=== PATIENT | female | born 1960 | race Caucasian/White ===

== ENCOUNTER 2019-05-25 14:30 | Emergency (ER) | payer OTHER, SELFPAY ==
[2019-05-25 14:43] VITALS: BP 130/74; PULSE 67; RESP 20; TEMP 36.7; O2SAT 100
--- NOTE | 2019-05-25 15:59 | ED.URI ---
HPI - URI/Sore Throat General Chief Complaint: Upper Respiratory Infection Stated Complaint: jaw swelling Time Seen by Provider: 05/25/19 16:00 Source: patient and RN notes reviewed Mode of arrival: ambulatory Limitations: no limitations History of Present Illness HPI Narrative: 59-year-old female presents with concern for left jaw swelling, ear pain that is to 3 days ago. Reports the swelling will get worse when she eats. Reports that area is also tender. She also reports 4-day history of nasal congestion, cough, sore throat. MD elicited complaint: other (Jaw swelling) Related Data Home Medications Medication Instructions Recorded Confirmed albuterol sulfate 90 mcg/actuation 2 puff INHALATION Q4H PRN gm 03/05/19 05/25/19 aerosol inhaler escitalopram oxalate 10 mg tablet 10 mg PO DAILY 03/05/19 05/25/19 fluticasone propionate 50 2 spray NASAL DAILY 03/05/19 05/25/19 mcg/actuation nasal spray,suspension lorazepam 0.5 mg tablet 0.5 mg PO TID PRN 03/05/19 05/25/19 Allergies Allergy/AdvReac Type Severity Reaction Status Date / Time codeine Allergy Mild Unknown Verified 05/25/19 14:52 Review of Systems Review of Systems: Narrative: CONSTITUTIONAL: Denies malaise, chills, sweats, or fever. EYES: Denies visual changes, redness, or discharge. ENT: Reports rhinorrhea, congestion, otalgia and sore throat. Reports left jaw swelling near her ear. CARDIOVASCULAR: Denies chest pain, palpitations, or edema. RESPIRATORY: Reports occasional cough. Denies dyspnea. GASTROINTESTINAL: Denies abdominal pain, nausea, vomiting, diarrhea SKIN: Denies rash or itching. MUSCULOSKELETAL: Denies myalgia. NEUROLOGIC: Denies headache. All systems reviewed & are unremarkable except as noted in HPI and below PMFSH Social History Social History Smoking status: Never smoker Alcohol intake: never Comments At time of signature, agree with nursing past medical, surgical, social and family history. There is no relevant family history pertinent to the presenting complaint Exam Narrative: Exam Narrative: GENERAL: Well-appearing, well-nourished, and in no acute distress. HEAD: Normocephalic, atraumatic. EYES: PERRLA, conjunctivae clear, and EOMI. ENT: Nares clear, turbinates erythematous, clear discharge. Mucous membranes moist. Right TM pearly redding with dull light reflex, left TM with very mild erythema, no purulence or bulging; no tragal tenderness. Oropharynx not erythematous without lesions. Tonsils not enlarged and without exudate, no drooling, no hoarseness, no trismus. Tenderness, induration noted to his left parotid gland; small pustule noted on the mucosal membrane outside the parotid duct NECK: Supple. No lymphadenopathy CHEST: Clear to auscultation, breath sounds equal. No wheezing, rhonchi, rales, or stridor. No respiratory distress, speaks in full sentences. HEART: Regular rate and rhythm. No murmur heard. Normal peripheral pulses. SKIN: Warm, dry, no rash. NEURO: Alert and oriented x3. PSYCH: Normal mood and affect Course Course Emergency Course: Patient is aware of diagnosis, understands and agrees to treatment plan. Anticipatory guidance given. Patient agrees to follow-up as directed and is aware of reasons to seek care at the emergency department. Portions of this record may have been created with voice recognition software Vital Signs Vital signs: Vital Signs Temperature 98.1 F 05/25/19 14:43 Pulse Rate 67 05/25/19 14:43 Respiratory Rate 05/25/19 14:43 Blood Pressure 130/74 05/25/19 14:43 Pulse Oximetry 100 05/25/19 14:43 Temperature 98.1 F 05/25/19 14:43 Pulse Rate 67 05/25/19 14:43 Respiratory Rate 05/25/19 14:43 Blood Pressure 130/74 05/25/19 14:43 Pulse Oximetry 100 05/25/19 14:43 Reviewed. Patient has current diagnosis of hypertension MDM - URI/Sore Throat MDM Narrative Medical decision making narrative: Differenti
== END 2019-05-25 16:20 | disposition home or self-care (01) ==
PROVIDERS: Emergency Provider Nurse Practitioner; PCP Family Medicine
DX: K11.20 Sialoadenitis, unspecified (principal); J44.9 Chronic obstructive pulmonary disease, unspecified; F41.9 Anxiety disorder, unspecified
CPT/HCPCS: 99213; G0463

== ENCOUNTER 2019-06-10 10:31 | Outpatient (CLI) | payer OTHER, SELFPAY ==
[2019-06-10 11:04] LABS: Basophils Percent Auto 0.4 % (0.2-1.2); Eosinophils Absolute Auto 0.2 K/mm3 (0-0.3); Eosinophils Percent Auto 2.2 % (0-4.4); Hematocrit 38.9 % (37.0-47.0); Hemoglobin 12.4 g/dL (12.0-15.0); Immature Granulocyte Absolute 0.05 K/mm3 (0.00-0.031); Immature Granulocyte Percent A 0.5 % (0-0.5); Lymphocytes Absolute Auto 2.18 K/mm3 (0.9-3.2); Lymphocytes Percent Auto 23.6 % (18.3-44.2); Mean Corpuscular HGB Conc 31.9 g/dl (32-36); Mean Corpuscular Hemoglobin 30.7 pg (26-34); Mean Corpuscular Volume 96.3 fl (80-100); Mean Platelet Volume 10.6 fl (7.4-10.4); Monocytes Absolute Auto 0.6 K/mm3 (0.1-0.6); Monocytes Percent Auto 6.5 % (2.6-8.5); Neutrophils Absolute Auto 6.2 K/mm3 (1.3-6.7); Neutrophils Percent Auto 66.8 % (45.5-73.1); Platelet Count Result 323 k/mm3 (150-375); Red Blood Count 4.04 M/mm3 (4.2-5.4); Red Cell Distribution Width 12.9 % (11.5-14.5); White Blood Count 9.3 K/mm3 (4.5-10.0)
[2019-06-10 11:17] LABS: Blood Urea Nitrogen 13 mg/dL (7-17); Carbon Dioxide 27 mmol/L (22-30); Chloride 102 mmol/L (98-107); Estimated Glomerular Filt Rate > 60; Glucose 95 mg/dL (65-105); Potassium 3.9 mmol/L (3.4-5.0); Sodium 140 mmol/L (137-145)
[2019-06-12 10:31] LABS: CMV IgG Antibody <0.60 U/mL (<0.60)
[2019-06-12 20:30] LABS: EBV Nuclear Ab Interpretation Past; EBV Virus Capsid Ag IgM Ab <36.00 U/mL (<36.00)
[2019-06-13 10:18] LABS: CMV IgM Antibody <30.00 AU/mL (<30.00)
== END 2019-06-10 10:32 | disposition home or self-care (01) ==
LOC: ANHLAB 10:31
PROVIDERS: PCP Family Medicine; Visit Provider Nurse Practitioner Family
DX: J32.9 Chronic sinusitis, unspecified (principal); R53.83 Other fatigue
CPT/HCPCS: 36415; 80048; 85025; 86644; 86645; 86664; 86665

== ENCOUNTER 2019-11-04 00:27 | Outpatient (CLI) | payer OTHER, SELFPAY ==
[2019-11-04 18:42] LABS: SARS-CoV-2 RNA PCR Negative
== END 2019-11-04 00:28 | disposition home or self-care (01) ==
LOC: ANHCOVIDDT 00:27
PROVIDERS: PCP Family Medicine; Visit Provider Internal Medicine Gastroenterology
DX: Z01.812 Encounter for preprocedural laboratory examination (principal); Z11.59 Encounter for screening for other viral diseases
CPT/HCPCS: 87635; C9803; U0003

== ENCOUNTER 2019-11-06 02:07 | Day surgery (SDC) | payer OTHER, SELFPAY ==
[2019-11-01 15:59] VITALS: BMI 35.9
[2019-11-06 07:53] VITALS: BP 133/81; PULSE 80; RESP 18; TEMP 36.4; O2SAT 98
[2019-11-06] MEDS: LACTATED RINGERS 1,000 ML 150 ML IV CONT (08:15)
--- NOTE | 2019-11-06 08:27 | P.PNAN_ITS ---
Anes - Initial Pre Proc Eval Procedure: Operation Date: 11/06/19 09:15 Proposed Procedures p Screening Colonoscopy - Lonnie Rg MD Date/Time: 11/06/19 08:27 Surgeon: Lonnie Rg MD Pre Op Diagnosis: Neoplasm Screening Patient Data Age: 59 Gender: F Height: 5 ft 7 in Weight: 102 kg Last Vital Signs Temp 97.5 F L 11/06/19 07:53 Pulse 80 11/06/19 07:53 Resp 18 11/06/19 07:53 BP 133/81 11/06/19 07:53 Pulse Ox 98 11/06/19 07:53 Allergies Allergy/AdvReac Type Severity Reaction Status Date / Time codeine AdvReac Mild Vomiting Verified 11/06/19 07:57 Home Medications Medication Instructions Recorded Confirmed Type albuterol sulfate 90 mcg/actuation 2 puff INHALATION Q4H PRN gm 03/05/19 11/06/19 History aerosol inhaler fluticasone propionate 50 2 spray NASAL DAILY PRN 03/05/19 11/06/19 History mcg/actuation nasal spray,suspension budesonide-formoterol HFA 160 2 puff INHALATION Q12H #3 device 09/17/19 11/06/19 Rx mcg-4.5 mcg/actuation aerosol inhaler naltrexone 8 mg-bupropion 90 mg 2 tablet PO BID #120 tablet 10/10/19 11/06/19 Rx tablet,extended release escitalopram oxalate 20 mg PO QAM 11/01/19 11/06/19 History lorazepam [Ativan] 0.5 mg PO TID PRN 11/01/19 11/06/19 History mirabegron [Myrbetriq] 25 mg PO HS 11/01/19 11/06/19 History naproxen 500 mg PO QAM 11/01/19 11/06/19 History omeprazole magnesium [Acid Drugless Doctor 20 mg PO QAM 11/01/19 11/06/19 History (omeprazole)] peg 3350-electrolytes 236 240 ml PO Q10M #4000 ml 11/04/19 Rx gram-22.74 gram-6.74 gram-5.86 gram solution Patient hx anesthesia problems: none Family hx anesthesia problems: none PMFSH Past Medical History Medical History (Updated 11/06/19 @ 08:27 by Diego Merrill MD) Chronic obstructive pulmonary disease, unspecified Gastroesophageal reflux disease Obesity Sleep apnea, unspecified Social History Social History Smoking status: Never smoker Alcohol intake: never Anes - Eval Final PreProcedure Day of Procedure 11/06/19 08:27 Patient weight: obese Heart: regular rate and rhythm Lungs: clear to auscultation Airway: Mallampati scale class II Neurological: alert and oriented Last oral intake: >/= 8 hours ASA classification: III Emergent: no Anesthetic plan: proceed Anesthesia type and monitoring: general GIVS Informed Consent: The patient's anesthetic plan and its attendant risks and benefits were discussed with the patient/family/POA. Questions were solicited and answers provided to the satisfaction of the patient/family/POA.
--- NOTE | 2019-11-06 08:41 | PM.HPGS ---
History of Present Illness History of Present Illness Consent: Risks, benefits, and alternatives have been discussed and questions answered. Patient agrees to proceed with procedure. Chief complaint: Neoplasm Screening Narrative: Pham Schreiber is a 59 year old female with her last colonoscopy 8 years ago, father with colon cancer Review of Systems Constitutional: Constitutional: Denies headache(s) and Denies weakness Eyes: Eyes: Denies blurry vision ENT: Reports Normal hearing present, Denies headache(s) and Denies neck pain Cardiovascular: Cardiovascular: Denies chest pain and Denies dyspnea Respiratory: Respiratory: Denies dyspnea Gastrointestinal: Gastrointestinal: Reports no additional gastrointestinal complaints Genitourinary: Genitourinary: Denies dysuria Musculoskeletal: Musculoskeletal: Denies neck pain Integumentary/Breasts: Skin/Breast: Denies dry skin Neurologic: Reports Normal hearing present, Denies headache(s) and Denies weakness Psychiatric: Psychiatric: Denies anxiety Endocrine: Endocrine: Denies change in body appearance Hematologic/Lymphatic: Hematologic/Lymphatic: Denies easy bleeding Allergic/Immunologic: Allergic/Immunologic: Denies urticaria PMFSH Past Medical History Medical History (Updated 11/06/19 @ 08:41 by Lonnie Rg MD) Chronic obstructive pulmonary disease, unspecified Family history of colon cancer in father Gastroesophageal reflux disease Obesity Sleep apnea, unspecified Social History Social History Smoking status: Never smoker Alcohol intake: never Meds Home Medications and Allergies Home Medications Medication Instructions Recorded Confirmed Type albuterol sulfate 90 mcg/actuation 2 puff INHALATION Q4H PRN gm 03/05/19 11/06/19 History aerosol inhaler fluticasone propionate 50 2 spray NASAL DAILY PRN 03/05/19 11/06/19 History mcg/actuation nasal spray,suspension budesonide-formoterol HFA 160 2 puff INHALATION Q12H #3 device 09/17/19 11/06/19 Rx mcg-4.5 mcg/actuation aerosol inhaler naltrexone 8 mg-bupropion 90 mg 2 tablet PO BID #120 tablet 10/10/19 11/06/19 Rx tablet,extended release escitalopram oxalate 20 mg PO QAM 11/01/19 11/06/19 History lorazepam [Ativan] 0.5 mg PO TID PRN 11/01/19 11/06/19 History mirabegron [Myrbetriq] 25 mg PO HS 11/01/19 11/06/19 History naproxen 500 mg PO QAM 11/01/19 11/06/19 History omeprazole magnesium [Acid White Kid Buffer 20 mg PO QAM 11/01/19 11/06/19 History (omeprazole)] peg 3350-electrolytes 236 240 ml PO Q10M #4000 ml 11/04/19 Rx gram-22.74 gram-6.74 gram-5.86 gram solution Allergies Allergy/AdvReac Type Severity Reaction Status Date / Time codeine AdvReac Mild Vomiting Verified 11/06/19 07:57 Vital Signs Vital Signs - 24 hr 11/06/19 07:53 Temperature 97.5 F L Pulse Rate 80 Respiratory Rate 18 Blood Pressure 133/81 Pulse Oximetry 98 Exam Const: General: comfortable and no acute distress HENMT: General nose exam: Normal nares present Eyes: General: appearance normal, both eyes and all related structures Neck: Neck: no JVD Resp: Auscultation: clear to auscultation bilaterally Cardio: Rate: regular rate Rhythm: regular rhythm GI: Inspection: non-distended GI Palp: Yes Soft to palpation Skin: General skin exam: normal color Neuro: General: gait normal Speech: normal speech Extrem: General: normal to inspection Psych: Mental Status: mental status grossly normal Assessment and Plan Assessment and plan (1) Family history of colon cancer in father: Code(s): Z80.0 - Family history of malignant neoplasm of digestive organs Status: Acute Assessment and Plan: will proceed with colonoscopy (2) Chronic obstructive pulmonary disease, unspecified: Code(s): J44.9 - Chronic obstructive pulmonary disease, unspecified Status: Acute
[2019-11-06 09:08] VITALS: BP 124/70; PULSE 75; RESP 18; O2SAT 96
[2019-11-06 09:16] VITALS: BP 117/71; PULSE 69; RESP 18; O2SAT 96
[2019-11-06 09:25] VITALS: BP 126/75; PULSE 67; RESP 18; O2SAT 98
== END 2019-11-06 09:34 | disposition home or self-care (01) ==
PROVIDERS: PCP Family Medicine; Visit Provider Internal Medicine Gastroenterology
PROC: 0DJD8ZZ Inspection of Lower Intestinal Tract, Via Natural or Artificial Opening Endoscopic (ICD-10-PCS; CPT 45378; principal; 2019-11-06 09:15)
DX: Z12.11 Encounter for screening for malignant neoplasm of colon (principal); K64.8 Other hemorrhoids; J44.9 Chronic obstructive pulmonary disease, unspecified; G47.30 Sleep apnea, unspecified; K21.9 Gastro-esophageal reflux disease without esophagitis; E66.9 Obesity, unspecified; Z68.35 Body mass index [BMI] 35.0-35.9, adult
CPT/HCPCS: 45378; J2704; J7120

== ENCOUNTER 2020-05-28 19:01 | Emergency (ER) | payer OTHER, SELFPAY ==
--- NOTE | ~2020-05-28 | XR_ITS ---
XR tibia fibula LT 2V 05/28/2020 19:28 INDICATION: Left leg pain after fall PROCEDURE: 2 views left tibia/fibula COMPARISON: Left knee series dated 05/28/2020 FINDINGS: Fracture, dislocation or subluxation is not identified. The soft tissues appear within norm al limits. No foreign bodies are identified. IMPRESSION: 1: NO ACUTE BONE OR JOINT ABNORMALITY IDENTIFIED. Reviewed, dictated and finalized at location A. BUILDER HELPER
--- NOTE | ~2020-05-28 | XR_ITS ---
XR knee LT 3V 05/28/2020 19:28 INDICATION: Left knee pain PROCEDURE: 3 views left knee COMPARISON: No prior studies for comparison. FINDINGS: Fracture, dislocation or subluxation is not identified. There is mild patellofemoral compar tment osteoarthritis. No significant joint effusion. The soft tissues appear within normal limits. N o foreign bodies are identified. IMPRESSION: 1: NO ACUTE BONE OR JOINT ABNORMALITY IDENTIFIED. Reviewed, dictated and finalized at location A. SIT SURVEY WORKER
[2020-05-28 19:05] VITALS: BP 140/76; PULSE 85; RESP 17; TEMP 36.6; O2SAT 100
--- NOTE | 2020-05-28 19:29 | ED.LOWEXIN ---
HPI - Extremity Injury (Lower) General Chief Complaint: Extremity Injury, Lower Stated Complaint: Left Knee Injury Time Seen by Provider: 05/28/20 19:14 Source: patient Mode of arrival: ambulatory Limitations: no limitations History of Present Illness HPI Narrative: Patient is a 52-year-old female complaining of left leg pain, 8 out of 10, aching, worse with movement and palpation, started prior to arrival after she jumped off her truck and fell on her left lower extremity. Denies any head pain or injury, neck pain, chest pain, abdominal pain, back pain or any other extremity pain/injury. Related Data Home Medications Medication Instructions Recorded Confirmed fluticasone propionate 50 2 spray NASAL DAILY PRN 03/05/19 11/14/19 mcg/actuation nasal spray,suspension mirabegron [Myrbetriq] 25 mg PO HS 11/01/19 11/14/19 naproxen 500 mg PO QAM 11/01/19 11/14/19 Allergies Allergy/AdvReac Type Severity Reaction Status Date / Time codeine AdvReac Mild Vomiting Verified 05/28/20 19:08 [facility] Past Medical History Medical History (Updated 05/28/20 @ 20:04 by Rudy Carranza MD) Chronic obstructive pulmonary disease, unspecified Family history of colon cancer in father Gastroesophageal reflux disease Obesity Sleep apnea, unspecified Family History Family History Father Hypertension Carcinoma of colon Family history of diabetes mellitus in first degree relative Grandparent Family history of heart disease in male family member before age 55 Diabetes mellitus Other Family history of mental disorder Social History Social History Smoking status: Never smoker Alcohol intake: never Gender identity (if verbalized by the patient): Female Exam Const: General: cooperative, healthy appearing, comfortable, no acute distress, well developed, alert and awake; No confusion Orientation/consciousness: oriented to person, oriented to place, oriented to time, patient oriented x3 and No confusion Limitations: no limitations HENMT: Head: normal to inspection, normocephalic and atraumatic Ears: hearing grossly normal bilaterally, TM normal on the right and TM normal on the left General nose exam: Normal external nose present, Normal nares present and No nasal discharge present Face and sinus: normal facial exam Mouth: Yes Normal oral and palatal mucosa present, Yes lip normal, Yes tongue normal and Yes oropharynx normal Throat: posterior oropharynx normal, tonsils normal and uvula midline Eyes: General: appearance normal, both eyes and all related structures Pupils: Equal, round and reactive pupils present EOM: EOMs intact bilaterally Neck: Neck: normal visual inspection, full ROM, no lymphadenopathy and no meningeal signs Chest: Chest palpation & inspection: normal inspection of the chest Resp: Effort & Inspection: normal respiratory effort, able to speak in complete sentences, no respiratory distress and not tachypneic Auscultation: clear to auscultation bilaterally, no crackles, no rales, no rhonchi and no wheezes Cardio: Rate: regular rate Rhythm: regular rhythm GI: Inspection: normal to inspection GI Palp: No abdominal tenderness, Yes Soft to palpation, No Tenderness to palpation present (GI), No Guarding due to palpation present (GI), No Rigid due to palpation and No Rebound tenderness present Auscultation: normal bowel sounds : General: Yes no CVA tenderness Back/Spine/Pelvis: Back: no CVA tenderness Skin: General skin exam: normal color, no rashes or lesions noted, elasticity normal and turgor normal Neuro: General: oriented to person, oriented to place, oriented to time, patient oriented x3, tone normal, moves all extremities, Normal light touch and pain sensation, no meningeal signs, no focal motor deficits, CN's II-XI intact bilaterally and No confusion Cranial nerves: Yes Equal, roun
[2020-05-28] MEDS: KETOROLAC 30 MG/ML VIAL (*BKC) IM (20:05)
--- NOTE | 2020-05-28 20:45 | PC.NURSE ---
4 inch extra long mainor wrap applied-instructions for wrapping wearing, rest and elevation given
[2020-05-28 20:50] VITALS: BP 137/75; PULSE 78; RESP 16; O2SAT 100
== END 2020-05-28 20:50 | disposition home or self-care (01) ==
PROVIDERS: Emergency Provider Emergency Medicine; PCP Family Medicine
DX: S86.912A Strain of unspecified muscle(s) and tendon(s) at lower leg level, left leg, initial encounter (principal); J44.9 Chronic obstructive pulmonary disease, unspecified; K21.9 Gastro-esophageal reflux disease without esophagitis; V58.4XXA Person boarding or alighting a pick-up truck or van injured in noncollision transport accident, initial encounter
CPT/HCPCS: 73562; 73590; 96372; 99284; J1885

== ENCOUNTER 2020-06-13 12:45 | Outpatient (CLI) | payer OTHER, SELFPAY ==
--- NOTE | ~2020-06-13 | MR_ITS ---
EXAMINATION: MR knee LT wo con, MR lower leg LT wo con DATE: 06/13/2020 14:21 INDICATION: Proximal left lower leg pain post fall 2 weeks prior TECHNIQUE: 1. Magnetic resonance imaging (MRI) of the left knee was performed without intravenous contrast. Seq uences included coronal PD-weighted FSE, coronal PD-weighted FS FSE, sagittal T2-weighted FSE, sagitt al PD-weighted FS FSE and axial PD weighted fat saturated FSE. 2 . MRI of the left tibia and fibula/lower leg was performed without intravenous contrast. Sequences included axial, sagittal and coronal T1-weighted FSE and fluid sensitive FSE STIR. Contralateral righ t lower limb is included on the coronal images. COMPARISON: None. FINDINGS: Medial compartment: Medial meniscus is normal. Articular cartilage is normal. Lateral compartment: Lateral meniscus is normal. Articular cartilage is normal. There is prominent marrow edema surroundin g a nondisplaced curvilinear low signal intensity fracture line underlying the lateral tibial plateau . The fracture line does extend to the articular surface at the junction of the middle and anterior t hirds. There is however no evident cortical discontinuity or step-off, either on the current study or prior radiographs. Patellofemoral compartment: There is deep chondral ulceration and fissuring with subarticular edema and cystic change at the medi al patellar facet, apical ridge and immediately adjacent medial margin of the lateral facet. Trochlea r cartilage is normal. Ligaments and tendons: Anterior and posterior cruciate ligaments are normal. The medial collateral ligament and fibular sourav ateral ligament complex are normal. The extensor mechanism is normal. The visualized medial and later al hamstring tendons as well as the iliotibial band are normal. Fluid: Physiologic amount of fluid in the joint space. No loose osteochondral bodies identified. Mild prepat ellar edema without discrete bursal fluid collection. Osseous/other: There is normal marrow signal aside from the previously noted edema surrounding the nondisplaced frac ture of the lateral tibial plateau. Otherwise normal marrow signal. Small low T1, high fluid sensitiv e signal lesion at the intercondylar region of the distal right femur with ring and arc-like sclerosi s on radiograph dated 01/23/2019 most consistent with an enchondroma. No other pathologic marrow repla cing process. Normal and symmetric muscle bulk and signal throughout the bilateral lower limbs. IMPRESSION: 1. Nondisplaced intra-articular fracture of the lateral tibial plateau without evident fracture gap o r incongruity at the articular cortex. 2. 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 Reviewed, dictated and finalized at location A. ER FRAMER HELPER IMPRESSION: 1. Nondisplaced intra-articular fracture of the lateral tibial plateau without evident fracture gap or incongruity at the articular cortex. 2. 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
== END 2020-06-13 12:46 | disposition home or self-care (01) ==
PROVIDERS: PCP Family Medicine; Visit Provider Nurse Practitioner Family
DX: S89.92XA Unspecified injury of left lower leg, initial encounter (principal); R29.898 Other symptoms and signs involving the musculoskeletal system; X58.XXXA Exposure to other specified factors, initial encounter; M17.12 Unilateral primary osteoarthritis, left knee
CPT/HCPCS: 73718; 73721

== ENCOUNTER 2020-12-19 09:03 | Outpatient (CLI) | payer OTHER, SELFPAY ==
[2020-12-19 09:22] LABS: Basophils Percent Auto 0.5 % (0.2-1.2); Eosinophils Absolute Auto 0.2 K/mm3 (0-0.3); Hematocrit 37.9 % (37.0-47.0); Hemoglobin 12.3 g/dL (12.0-15.0); Immature Granulocyte Absolute 0.03 K/mm3 (0.00-0.031); Immature Granulocyte Percent A 0.4 % (0-0.5); Lymphocytes Absolute Auto 1.59 K/mm3 (0.9-3.2); Lymphocytes Percent Auto 20.2 % (18.3-44.2); Mean Corpuscular HGB Conc 32.5 g/dl (32-36); Mean Corpuscular Hemoglobin 31.2 pg (26-34); Mean Corpuscular Volume 96.2 fl (80-100); Mean Platelet Volume 10.3 fl (7.4-10.4); Monocytes Absolute Auto 0.5 K/mm3 (0.1-0.6); Monocytes Percent Auto 6.8 % (2.6-8.5); Neutrophils Absolute Auto 5.5 K/mm3 (1.3-6.7); Neutrophils Percent Auto 70.1 % (45.5-73.1); Platelet Count Result 288 k/mm3 (150-375); Red Blood Count 3.94 M/mm3 (4.2-5.4); Red Cell Distribution Width 13.2 % (11.5-14.5); White Blood Count 7.9 K/mm3 (4.5-10.0)
[2020-12-19 09:33] LABS: Alanine Aminotransferase 20 U/L (4-35); Albumin Level 3.8 g/dL (3.5-5.1); Alkaline Phosphatase 129 U/L (38-126); Anion Gap 6 mmol/L (8-16); Aspartate Amino Transferase 23 U/L (14-36); Bilirubin,Total 0.3 mg/dL (0.2-1.3); Blood Urea Nitrogen 16 mg/dL (7-17); Calcium 8.9 mg/dL (8.4-10.2); Carbon Dioxide 26 mmol/L (22-30); Chloride 105 mmol/L (98-107); Cholesterol 171 mg/dL (0-200); Estimated Glomerular Filt Rate > 60; Glucose 111 mg/dL (65-110); HDL Direct 58 mg/dL; Potassium 3.9 mmol/L (3.4-5.0); Sodium 137 mmol/L (137-145); Triglycerides 46 mg/dL (<150)
[2020-12-19 09:40] LABS: NT Pro B Type Natriuretic Pept 162 pg/mL (5-100)
[2020-12-19 09:43] LABS: LDL Cholesterol Direct 89 mg/dL
[2020-12-19 10:30] LABS: Vitamin D 25 Hydroxy 42.8 ng/mL
== END 2020-12-19 09:04 | disposition home or self-care (01) ==
PROVIDERS: PCP Family Medicine; Visit Provider Nurse Practitioner Family
DX: M79.89 Other specified soft tissue disorders (principal); Z68.36 Body mass index [BMI] 36.0-36.9, adult; R53.83 Other fatigue; Z13.220 Encounter for screening for lipoid disorders; Z13.29 Encounter for screening for other suspected endocrine disorder
CPT/HCPCS: 36415; 80053; 80061; 82306; 83880; 84443; 85025

== ENCOUNTER 2021-01-11 14:40 | Outpatient (CLI) | payer OTHER, SELFPAY ==
--- NOTE | 2021-01-11 15:03 | ECHO_ITS ---
Patient Info Name: Pham Schreiber Age: 60 years : 1960 Gender: Female Ht: 67 in Wt: 210 lbs BSA: 2.16 m2 HR: 78 bpm BP: 122 / 77 mmHg Technical Quality: Good Exam Date: 01/11/2021 3:21 PM Exam Location: [facility] Patient Status: Outpatient Admit Date: 01/11/2021 Staff Ordering Physician: Karen Amos PAC Electrical Software Engineer: Chandrika Mccauley RDCS Attending Provider: Margoth Kearney NP Referring Physician: Dandre WALL; Exam Type: CA echo doppler color flow Study Info Indications - abnormal BNP Complete two-dimensional, color flow and Doppler transthoracic echocardiogram is performed. Summary 1. Complete two-dimensional, color flow and Doppler transthoracic echocardiogram is performed. 2. Left ventricular chamber dimension is normal. 3. Left ventricular systolic function is normal, estimated at 65-70%. 4. The left ventricular diastolic function is grade I diastolic dysfunction. 5. E/e' 8 is minimally elevated. 6. There is trace tricuspid valve regurgitation. 7. No pulmonary hypertension, estimated pulmonary arterial systolic pressure is 26 mmHg. Left Ventricle E/e' 8 is minimally elevated. Left ventricular chamber dimension is normal. Left ventricular systolic function is normal, estimated at 65-70%. The left ventricular diastolic function is grade I diastolic dysfunction. Right Ventricle Right ventricular chamber dimension is normal. Right ventricular systolic function is normal. Left Atria Left atrial chamber dimension is normal. Right Atria Right atrial chamber dimension is normal. Aortic Valve The aortic valve is trileaflet. There is no aortic valve stenosis. There is no aortic valve regurgitation. Pulmonic Valve There is no pulmonic regurgitation. Mitral Valve There is no mitral valve stenosis. There is no mitral valve regurgitation. Tricuspid Valve There is trace tricuspid valve regurgitation. No pulmonary hypertension, estimated pulmonary arterial systolic pressure is 26 mmHg. Pericardium/Pleural There is no pericardial effusion. Inferior Vena Cava Normal inferior vena cava with >50% collapse upon inspiration consistent with normal right atrial pressure, 5 mmHg. Aorta The aortic root size at the sinus of Valsalva is normal. Left Ventricular Outflow Tract Name Value Normal LVOT 2D LVOT Diameter 2.0 cm LVOT Doppler LVOT Peak Gradient 6 mmHg LVOT Mean Gradient 3 mmHg LVOT VTI 26 cm LVOT VTI/AV VTI Ratio 0.9 LVOT Stroke Volume 78 ml LVOT CO 14.9 l/min LVOT CI 6.9 l/min/m2 Pulmonic Valve Name Value Normal PV Doppler PV Peak Gradient 4 mmHg Mitral Valve
== END 2021-01-11 14:41 | disposition home or self-care (01) ==
PROVIDERS: PCP Family Medicine; Visit Provider Nurse Practitioner Family
DX: R79.89 Other specified abnormal findings of blood chemistry (principal)
CPT/HCPCS: 93306

== ENCOUNTER 2021-02-13 11:52 | Outpatient (CLI) | payer OTHER, SELFPAY ==
[2021-02-13 12:20] LABS: Anion Gap 6 mmol/L (8-16); Blood Urea Nitrogen 14 mg/dL (7-17); Calcium 9.1 mg/dL (8.4-10.2); Carbon Dioxide 26 mmol/L (22-30); Chloride 106 mmol/L (98-107); Estimated Glomerular Filt Rate > 60; Glucose 103 mg/dL (65-110); Potassium 4.2 mmol/L (3.4-5.0); Sodium 138 mmol/L (137-145)
== END 2021-02-13 11:53 | disposition home or self-care (01) ==
LOC: ANHLAB 11:53
PROVIDERS: PCP Family Medicine; Visit Provider Physician Assistant Medical
DX: R73.09 Other abnormal glucose (principal)
CPT/HCPCS: 36415; 80048

== ENCOUNTER 2021-02-22 16:30 | Outpatient (CLI) | payer OTHER, SELFPAY ==
[2021-02-22 16:53] LABS: Hemoglobin A1C 5.9 % (<5.7)
== END 2021-02-22 16:31 | disposition home or self-care (01) ==
LOC: ANHLAB 16:32
PROVIDERS: PCP Family Medicine; Visit Provider Physician Assistant Medical
DX: R73.09 Other abnormal glucose (principal)
CPT/HCPCS: 36415; 83036

== ENCOUNTER 2021-04-19 14:19 | Outpatient (CLI) | payer OTHER, SELFPAY ==
--- NOTE | ~2021-04-19 | US_ITS ---
US venous doppler [facility] DATE: 04/19/2021 16:07 INDICATION: Varicose veins, leg swelling TECHNIQUE: Real-time imaging and color flow imaging and Doppler analysis COMPARISON: None FINDINGS: There is spontaneous and phasic flow and normal augmentation and color flow signal and norm al compression of the deep veins of both lower extremities, including common femoral, femoral, poplit eal, posterior tibial and peroneal veins bilaterally. Right lower extremity Right greater saphenous vein: Proximal: 5 mm diameter, no reflux Mid: 4.4 mm diameter, no reflux Lower le.6 mm diameter, no reflux Right lesser saphenous vein: Proximal: 2.1 mm diameter, no reflux Distal colon 1.2 mm diameter, no reflux Left lower extremity Left greater saphenous vein: Proximal: 4.6 mm diameter, no reflux Mid: 3.6 mm diameter, no reflux Lower le.9 mm diameter, no reflux Left lesser saphenous vein Proximal: 4.3 mm diameter, no reflux Distal: 1.9 mm diameter, no reflux IMPRESSION: No evidence of deep venous thrombosis No reflux is demonstrated in the greater or lesser saphenous veins Reviewed, dictated and finalized at Location A. Reviewed, dictated and finalized at location A. UM WORKER
== END 2021-04-19 14:20 | disposition home or self-care (01) ==
PROVIDERS: PCP Family Medicine; Visit Provider Internal Medicine Cardiovascular Disease
DX: M79.89 Other specified soft tissue disorders (principal)
CPT/HCPCS: 93970

== ENCOUNTER 2021-09-14 16:21 | Outpatient (CLI) | payer OTHER, SELFPAY ==
[2021-09-14 16:49] LABS: Basophils Percent Auto 0.4 % (0.2-1.2); Eosinophils Absolute Auto 0.2 K/mm3 (0-0.3); Eosinophils Percent Auto 1.9 % (0-4.4); Hematocrit 37.3 % (37.0-47.0); Hemoglobin 12.1 g/dL (12.0-15.0); Immature Granulocyte Absolute 0.05 K/mm3 (0.00-0.031); Immature Granulocyte Percent A 0.5 % (0-0.5); Lymphocytes Absolute Auto 2.83 K/mm3 (0.9-3.2); Lymphocytes Percent Auto 28.1 % (18.3-44.2); Mean Corpuscular HGB Conc 32.4 g/dl (32-36); Mean Corpuscular Hemoglobin 31.6 pg (26-34); Mean Corpuscular Volume 97.4 fl (80-100); Mean Platelet Volume 10.2 fl (7.4-10.4); Monocytes Absolute Auto 0.7 K/mm3 (0.1-0.6); Monocytes Percent Auto 6.7 % (2.6-8.5); Neutrophils Absolute Auto 6.3 K/mm3 (1.3-6.7); Neutrophils Percent Auto 62.4 % (45.5-73.1); Platelet Count Result 299 k/mm3 (150-375); Red Blood Count 3.83 M/mm3 (4.2-5.4); Red Cell Distribution Width 12.5 % (11.5-14.5); White Blood Count 10.1 K/mm3 (4.5-10.0)
[2021-09-14 16:58] LABS: Alanine Aminotransferase 16 U/L (6-35); Albumin Level 3.6 g/dL (3.5-5.1); Alkaline Phosphatase 129 U/L (38-126); Anion Gap 6 mmol/L (8-16); Aspartate Amino Transferase 25 U/L (14-36); Bilirubin,Total 0.2 mg/dL (0.2-1.3); Blood Urea Nitrogen 19 mg/dL (7-17); Calcium 8.5 mg/dL (8.4-10.2); Carbon Dioxide 27 mmol/L (22-30); Chloride 107 mmol/L (98-107); Estimated Glomerular Filt Rate 57; Glucose 89 mg/dL (65-110); Potassium 3.9 mmol/L (3.4-5.0); Sodium 140 mmol/L (137-145)
== END 2021-09-14 16:22 | disposition home or self-care (01) ==
LOC: ANHLAB 16:23
PROVIDERS: PCP Family Medicine; Visit Provider Internal Medicine Cardiovascular Disease
DX: Z01.812 Encounter for preprocedural laboratory examination (principal); M79.89 Other specified soft tissue disorders
CPT/HCPCS: 36415; 80053; 85025

== ENCOUNTER 2021-10-09 09:22 | Outpatient (CLI) | payer OTHER, SELFPAY ==
[2021-10-09 09:55] LABS: Hematocrit 38.4 % (37.0-47.0); Hemoglobin 12.4 g/dL (12.0-15.0); Mean Corpuscular HGB Conc 32.3 g/dl (32-36); Mean Corpuscular Hemoglobin 31.2 pg (26-34); Mean Corpuscular Volume 96.7 fl (80-100); Mean Platelet Volume 10.1 fl (7.4-10.4); Platelet Count Result 293 k/mm3 (150-375); Red Blood Count 3.97 M/mm3 (4.2-5.4); Red Cell Distribution Width 12.6 % (11.5-14.5); White Blood Count 7.3 K/mm3 (4.5-10.0)
[2021-10-09 10:13] LABS: Rheumatoid Factor < 8.6 IU/ML (<12)
[2021-10-09 10:20] LABS: LDL Cholesterol Direct 93 mg/dL
[2021-10-09 10:26] LABS: Erythrocyte Sedimentation Rate 17 mm/hr (0-20)
[2021-10-09 10:39] LABS: Thyroid Stimulating Hormone 0.859 uIU/mL (0.465-4.680)
[2021-10-09 11:12] LABS: Alanine Aminotransferase 13 U/L (6-35); Albumin Level 3.9 g/dL (3.5-5.1); Alkaline Phosphatase 118 U/L (38-126); Anion Gap 5 mmol/L (8-16); Aspartate Amino Transferase 19 U/L (14-36); Bilirubin,Total 0.4 mg/dL (0.2-1.3); Blood Urea Nitrogen 16 mg/dL (7-17); CRP 0.9 mg/dL (<1.0); Calcium 8.6 mg/dL (8.4-10.2); Carbon Dioxide 26 mmol/L (22-30); Chloride 107 mmol/L (98-107); Cholesterol 179 mg/dL (0-200); Estimated Glomerular Filt Rate > 60; Glucose 103 mg/dL (65-110); HDL Direct 60 mg/dL; Potassium 4.3 mmol/L (3.4-5.0); Sodium 138 mmol/L (137-145); Triglycerides 44 mg/dL (<150)
[2021-10-09 11:16] LABS: Vitamin D 25 Hydroxy 48.5 ng/mL
== END 2021-10-09 09:23 | disposition home or self-care (01) ==
LOC: ANHLAB 09:24
PROVIDERS: PCP Family Medicine; Visit Provider Nurse Practitioner Family
DX: E78.5 Hyperlipidemia, unspecified (principal); G47.33 Obstructive sleep apnea (adult) (pediatric); Z13.29 Encounter for screening for other suspected endocrine disorder; M25.50 Pain in unspecified joint; E55.9 Vitamin D deficiency, unspecified
CPT/HCPCS: 36415; 80053; 80061; 82306; 84443; 85027; 85652; 86038; 86039; 86140; 86430

== ENCOUNTER 2021-11-10 14:33 | Outpatient (CLI) | payer OTHER, SELFPAY ==
--- NOTE | ~2021-11-10 | CT_ITS ---
EXAMINATION: CT brain wo con DATE: 11/10/2021 14:52 INDICATION: Headache. TECHNIQUE: Computed tomography (CT) of the head was performed without intravenous contrast. The mA wa s adjusted according to patient size. Iterative reconstruction technique was employed. The dose-lengt h product was 529.67 mGy-cm. COMPARISON: None FINDINGS: There is no intracranial hemorrhage, acute infarction, or abnormal intracranial mass lesion . The ventricles are normal in size. The orbits are normal. There is mild mucosal thickening in the p aranasal sinuses. The mastoid air cells are normal. IMPRESSION: 1. Normal brain. Reviewed, dictated and finalized at location A. IMPRESSION: 1. Normal brain.
== END 2021-11-10 14:34 | disposition home or self-care (01) ==
PROVIDERS: PCP Family Medicine; Visit Provider Internal Medicine Cardiovascular Disease
DX: R51.9 Headache, unspecified (principal)
CPT/HCPCS: 70450

== ENCOUNTER 2022-01-26 12:43 | Emergency (ER) | payer OTHER, SELFPAY ==
--- NOTE | ~2022-01-26 | XR_ITS ---
EXAMINATION: XR chest 2V DATE: 01/26/2022 13:29 INDICATION: Cough. Chest discomfort. TECHNIQUE: Frontal and lateral views of the chest were obtained. COMPARISON: Chest 2 views 01/23/2019 FINDINGS: There is mild scarring at right lung apex. No pneumonia, pleural effusion, or pneumothorax. The heart size is normal. Surgical clips in the right upper quadrant are likely from cholecystectomy . IMPRESSION: 1. Stable mild scarring at right lung apex. Reviewed, dictated and finalized at location A.
--- NOTE | 2022-01-26 12:51 | ED.URI ---
HPI - URI/Sore Throat General Chief Complaint: Upper Respiratory Infection Stated Complaint: uri Time Seen by Provider: 01/26/22 13:40 Source: patient and RN notes reviewed Mode of arrival: ambulatory Limitations: no limitations History of Present Illness HPI Narrative: 61-year-old female presents with concern for cough, sore, swollen glands, hoarse voice for 6 weeks. Reports the beginning December she had COVID. She reports she is taken several [id number] medications for her symptoms without relief. She reports occasional shortness of breath. She denies fever, body aches, chills, sweats. MD elicited complaint: cough and sore throat Related Data Home Medications Medication Instructions Recorded Confirmed fluticasone propionate 50 2 spray intranasal DAILY PRN 03/05/19 01/26/22 mcg/actuation nasal Congestion spray,suspension (Flonase Allergy Relief) carvedilol 6.25 mg tablet (Coreg) 6.25 mg PO Q12H 07/08/21 01/26/22 furosemide 20 mg tablet (Lasix) 10 mg PO QAM 07/08/21 01/26/22 clopidogrel 75 mg tablet 75 mg PO DAILY 10/07/21 01/26/22 nitroglycerin 0.4 mg sublingual 0.4 mg sublingual Q5M PRN Chest 10/07/21 01/26/22 tablet Pain rosuvastatin 20 mg tablet 20 mg PO DAILY 10/07/21 01/26/22 naproxen 500 mg tablet 500 mg PO BID 01/26/22 01/26/22 Allergies Allergy/AdvReac Type Severity Reaction Status Date / Time codeine AdvReac Mild Vomiting Verified 01/26/22 12:46 Review of Systems Review of Systems: CONSTITUTIONAL: Denies malaise, chills, sweats, or fever. EYES: Denies visual changes, redness, or discharge. ENT: Denies rhinorrhea, congestion, sinus pain, otalgia. Reports hoarse voice and sore throat. CARDIOVASCULAR: Denies chest pain, palpitations, or edema. RESPIRATORY: Reports cough, episodes dyspnea. GASTROINTESTINAL: Denies abdominal pain, nausea, vomiting, diarrhea SKIN: Denies rash or itching. MUSCULOSKELETAL: Denies myalgia. NEUROLOGIC: Denies headache. All systems reviewed & are unremarkable except as noted in HPI and below [facility] Past Medical History Medical History Abnormal echocardiogram BMI 31.0-31.9,adult BMI 32.0-32.9,adult BMI 35.0-35.9,adult BMI 36.0-36.9,adult Chronic obstructive pulmonary disease, unspecified Diastolic dysfunction Family history of colon cancer in father Gastroesophageal reflux disease Iliac vein stenosis, left Obesity GANGA (obstructive sleep apnea) Sleep apnea, unspecified Surgical History Surgical History History of cardiac cath Family History Family History Father Hypertension Carcinoma of colon Family history of diabetes mellitus in first degree relative Grandparent Family history of heart disease in male family member before age 55 Diabetes mellitus Mother Mental health disorder Other Family history of mental disorder Social History Social History Smoking status: Never smoker Second hand tobacco smoke exposure: Yes Alcohol intake: current Substance use: never Substance use type: does not use 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 Gender identity (if verbalized by the patient): Female Comments At time of signature, agree with nursing past medical, surgical, social and family history. There is no relevant family history pertinent to the presenting complaint Exam Narrative: GENERAL: Nontoxic appearing and in no acute distress. HEAD: Normocephalic EYES: PERRLA, conjunctivae clear ENT: Nares clear. Mucous membranes moist. TM pearly redding with dull light reflex bilaterally; no tragal tenderness. Oropharynx erythematous without lesions. Tonsils not enlarged and without exudate, no drooling, no trismus, uvula midline. Hoarse
[2022-01-26 12:52] VITALS: BP 116/70; PULSE 74; RESP 16; TEMP 36.9; O2SAT 100
== END 2022-01-26 13:57 | disposition home or self-care (01) ==
PROVIDERS: Emergency Provider Nurse Practitioner; PCP Family Medicine
DX: J40 Bronchitis, not specified as acute or chronic (principal); E66.9 Obesity, unspecified; Z68.34 Body mass index [BMI] 34.0-34.9, adult; K21.9 Gastro-esophageal reflux disease without esophagitis; J44.9 Chronic obstructive pulmonary disease, unspecified; G47.33 Obstructive sleep apnea (adult) (pediatric)
CPT/HCPCS: 71046; 99213; G0463

== ENCOUNTER 2022-03-05 11:10 | Emergency (ER) | payer OTHER, SELFPAY ==
--- NOTE | 2022-03-05 11:30 | ED.URI ---
HPI - URI/Sore Throat General Chief Complaint: Upper Respiratory Infection Stated Complaint: Sinus,Headache Time Seen by Provider: 03/05/22 11:30 Source: patient Mode of arrival: ambulatory Limitations: no limitations History of Present Illness HPI Narrative: 61 yo F presents with c/o sinus congestion, pressure, nasal congestion, cough for 3 to 4 wks. No chest pain or shortness breath. Reports history of sinus infections. Patient using Flonase. Afebrile. All systems reviewed and negative except as noted above. Related Data Home Medications Medication Instructions Recorded Confirmed fluticasone propionate 50 2 spray intranasal DAILY PRN 03/05/19 03/05/22 mcg/actuation nasal Congestion spray,suspension (Flonase Allergy Relief) carvedilol 6.25 mg tablet (Coreg) 6.25 mg PO Q12H 07/08/21 03/05/22 furosemide 20 mg tablet (Lasix) 10 mg PO QAM 07/08/21 03/05/22 clopidogrel 75 mg tablet 75 mg PO DAILY 10/07/21 03/05/22 rosuvastatin 20 mg tablet 20 mg PO DAILY 10/07/21 01/31/22 aspirin 81 mg tablet,delayed mg 03/05/22 03/05/22 release venlafaxine 150 mg mg PO 03/05/22 capsule,extended release 24 hr Allergies Allergy/AdvReac Type Severity Reaction Status Date / Time codeine AdvReac Mild Vomiting Verified 03/05/22 11:23 Review of Systems Review of Systems: CONSTITUTIONAL: Denies fever, chills, or sweats. EYES: Denies visual changes, redness, or discharge. ENT: Reports rhinorrhea, congestion, sore throat, and otalgia. CARDIOVASCULAR: Denies chest pain, palpitations, or edema. RESPIRATORY: reports cough. Denies dyspnea. GASTROINTESTINAL: Denies abdominal pain, nausea, vomiting, or diarrhea. GENITOURINARY: Denies dysuria or hematuria. SKIN: Denies rash or itching. MUSCULOSKELETAL: Denies back pain, joint pain, or myalgia. NEUROLOGIC: Denies headache, numbness, or weakness. PSYCHIATRIC: Denies anxiety or depression. All other systems reviewed are negative, except as documented in HPI. [facility] Past Medical History Medical History Abnormal echocardiogram BMI 31.0-31.9,adult BMI 32.0-32.9,adult BMI 33.0-33.9,adult BMI 35.0-35.9,adult BMI 36.0-36.9,adult Chronic obstructive pulmonary disease, unspecified Diastolic dysfunction Family history of colon cancer in father Gastroesophageal reflux disease Iliac vein stenosis, left Obesity GANGA (obstructive sleep apnea) Sleep apnea, unspecified Surgical History Surgical History History of cardiac cath Family History Family History Father Hypertension Carcinoma of colon Family history of diabetes mellitus in first degree relative Grandparent Family history of heart disease in male family member before age 55 Diabetes mellitus Mother Mental health disorder Other Family history of mental disorder Social History Social History Smoking status: Never smoker Second hand tobacco smoke exposure: Yes Alcohol intake: current Substance use: never Substance use type: does not use 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 There is no relevant family history pertinent to the presenting complaint. Exam Narrative: GENERAL: This is a well-nourished, well-developed patient, in no apparent distress. HEAD: normocephalic, atraumatic. EYES: PERRL. Sclera clear/white. Vision is grossly intact. EARS: External ears normal, auditory canals clear and without drainage, fluid bilateral TMs without perforation or erythema. NOSE: External nose normal with Purulent nasal drainage, bilateral maxilla
[2022-03-05 11:31] VITALS: BP 144/75; PULSE 78; RESP 18; TEMP 36.7; O2SAT 100
== END 2022-03-05 11:40 | disposition home or self-care (01) ==
PROVIDERS: Emergency Provider Nurse Practitioner Family; PCP Family Medicine
DX: J01.90 Acute sinusitis, unspecified (principal); B96.89 Other specified bacterial agents as the cause of diseases classified elsewhere; J44.9 Chronic obstructive pulmonary disease, unspecified; Z79.82 Long term (current) use of aspirin
CPT/HCPCS: 99213; G0463

== ENCOUNTER 2022-06-06 16:59 | Outpatient (CLI) | payer OTHER, SELFPAY ==
--- NOTE | ~2022-06-06 | XR_ITS ---
EXAM: XR knee RT 2V, XR knee LT min 4V, XR knee LT 2V DATE: 06/06/2022 18:24 HISTORY: POSITIVE ALEJANDRO . COMPARISON: 01/23/2019. FINDINGS: Decreased mineralization. No fracture or dislocation. No lytic or blastic lesion. Bilatera l moderate medial joint space narrowing. Mild bilateral tricompartmental osteophytosis. Stable right knee enchondroma. No erosion or periosteal change. Soft tissues within normal limits. IMPRESSION: Tricompartmental bilateral knee osteoarthritis. Reviewed, dictated and finalized at location K. O PRINTER IMPRESSION: Tricompartmental bilateral knee osteoarthritis. IMPRESSION: Tricompartmental bilateral knee osteoarthritis.
[2022-06-06 18:24] LABS: Rheumatoid Factor < 8.6 IU/ML (<12)
[2022-06-06 18:41] LABS: Erythrocyte Sedimentation Rate 17 mm/hr (0-20)
[2022-06-06 18:50] LABS: Appearance Urine Cloudy (Clear); Bilirubin Urine 1+ (Negative); Blood Urine 1+ (Negative); Color Urine Yellow (Yellow); Glucose Urine UA Negative (Negative); Ketones Urine Negative (Negative); Leukocyte Esterase Ur 1+ LEU/UL (Negative); Nitrate Urine Negative (Negative); Protein Urine Trace mg/dL (Negative); Specific Grav Ur >= 1.030 (1.001-1.035); pH Urine 5.5 (5.0-9.0)
[2022-06-06 19:02] LABS: Bacteria Urine Trace /hpf; Calcium Oxalate Crystals Urine Many /hpf; Mucus Urine Rare /lpf; Squamous Epithelial Cell Urine Moderate /hpf (Few)
[2022-06-06 19:05] LABS: Add Urine Microscopic? YES
[2022-06-06 19:46] LABS: Creatinine Urine 249.8 mg/dL
[2022-06-06 20:34] LABS: Total Protein Urine Random < 5 mg/dL
[2022-06-06 20:35] LABS: Ur Ttl Prot Creatinine Ratio < 0.02 mg/mg (0-0.20)
[2022-06-06 20:35] LABS: Alanine Aminotransferase 22 U/L (6-35); Albumin Level 4.7 g/dL (3.5-5.1); Alkaline Phosphatase 143 U/L (38-126); Anion Gap 8 mmol/L (8-16); Aspartate Amino Transferase 28 U/L (14-36); Bilirubin,Total 0.5 mg/dL (0.2-1.3); Blood Urea Nitrogen 17 mg/dL (7-17); Calcium 8.8 mg/dL (8.4-10.2); Carbon Dioxide 31 mmol/L (22-30); Chloride 99 mmol/L (98-107); Estimated Glomerular Filt Rate 57; Glucose 88 mg/dL (65-110); Potassium 3.3 mmol/L (3.4-5.0); Sodium 138 mmol/L (137-145)
[2022-06-09 19:00] LABS: SS-A <1.0; SS-B <1.0
[2022-06-10 11:51] LABS: Creatinine, Random Urine 202 mg/dL (20-275); Total Protein/Creatinine Ratio 64 mg/g creat (24-184)
== END 2022-06-06 17:00 | disposition home or self-care (01) ==
LOC: ANHLAB 17:05
PROVIDERS: PCP Family Medicine
DX: R76.8 Other specified abnormal immunological findings in serum (principal); M17.0 Bilateral primary osteoarthritis of knee
CPT/HCPCS: 36415; 73560; 73564; 80053; 81001; 82570; 84156; 84166; 85652; 86225; 86235; 86430; 87086; 87088

== ENCOUNTER 2022-06-09 19:10 | Emergency (ER) | payer OTHER, SELFPAY ==
[2022-06-09 19:19] VITALS: BP 135/68; PULSE 62; RESP 16; TEMP 36.7; O2SAT 99
--- NOTE | 2022-06-09 19:47 | ED.FEMALEGU ---
HPI - Female Genitourinary General Chief complaint: Urogenital-Female Stated complaint: UTI Time Seen by Provider: 06/09/22 19:47 Source: patient Mode of arrival: ambulatory Limitations: no limitations History of Present Illness HPI Narrative: 62-year-old female presents with complaint of yellow discharge, odor, thick with some mild vaginal irritation. Reports similar symptoms the last time she had bacterial vaginosis. Has had symptoms for 3-4 days. 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 Patient is not sexually active. All systems reviewed and negative except as noted above. Related Data Home Medications Medication Instructions Recorded Confirmed fluticasone propionate 50 2 spray intranasal DAILY PRN 03/05/19 03/05/22 mcg/actuation nasal Congestion spray,suspension (Flonase Allergy Relief) carvedilol 6.25 mg tablet (Coreg) 6.25 mg PO Q12H 07/08/21 03/05/22 furosemide 20 mg tablet (Lasix) 10 mg PO QAM 07/08/21 03/05/22 clopidogrel 75 mg tablet 75 mg PO DAILY 10/07/21 03/05/22 rosuvastatin 20 mg tablet 20 mg PO DAILY 10/07/21 01/31/22 aspirin 81 mg tablet,delayed mg 03/05/22 03/05/22 release Allergies Allergy/AdvReac Type Severity Reaction Status Date / Time codeine AdvReac Mild Vomiting Verified 06/09/22 19:32 Review of Systems Review of Systems: CONSTITUTIONAL: Denies fever, chills, or sweats. EYES: Denies visual changes, redness, or discharge. ENT: Denies rhinorrhea, congestion, sore throat, or otalgia. CARDIOVASCULAR: Denies chest pain, palpitations, or edema. RESPIRATORY: Denies cough or dyspnea. GASTROINTESTINAL: Denies abdominal pain, nausea, vomiting, or diarrhea. GENITOURINARY: Denies dysuria or hematuria. Reports vaginal discharge with odor. SKIN: Denies rash or itching. MUSCULOSKELETAL: Denies back pain, joint pain, or myalgia. NEUROLOGIC: Denies headache, numbness, or weakness. PSYCHIATRIC: Denies anxiety or depression. All other systems reviewed are negative, except as documented in HPI. [facility] Past Medical History Medical History (Updated 06/09/22 @ 19:53 by Margoth Ricardo NP) Abnormal echocardiogram BMI 31.0-31.9,adult BMI 32.0-32.9,adult BMI 33.0-33.9,adult BMI 35.0-35.9,adult BMI 36.0-36.9,adult Chronic obstructive pulmonary disease, unspecified Diastolic dysfunction Family history of colon cancer in father Gastroesophageal reflux disease Iliac vein stenosis, left Obesity GANGA (obstructive sleep apnea) Sinusitis Sleep apnea, unspecified Surgical History Surgical History History of cardiac cath Family History Family History Father Hypertension Carcinoma of colon Family history of diabetes mellitus in first degree relative Grandparent Family history of heart disease in male family member before age 55 Diabetes mellitus Mother Mental health disorder Other Family history of mental disorder Social History Social History Smoking status: Never smoker Second hand tobacco smoke exposure: Yes Alcohol intake: current Substance use: never Substance use type: does not use Living arrangements: alone Occupation/Education: occupation 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 There is no relevant family history pertinent to the presenting complaint. Exam Narrative: GENERAL: This is a well-nourished, well-developed patient, in no apparent distress. HEAD: normocephalic, atraumatic. EYES: PERRL. Sclera clear/white. Vision is grossly intact. EARS: External ears normal
== END 2022-06-09 19:55 | disposition home or self-care (01) ==
PROVIDERS: Emergency Provider Nurse Practitioner Family; PCP Family Medicine
DX: N89.8 Other specified noninflammatory disorders of vagina (principal); J44.9 Chronic obstructive pulmonary disease, unspecified; K21.9 Gastro-esophageal reflux disease without esophagitis
CPT/HCPCS: 99213; G0463

== ENCOUNTER 2022-06-28 17:44 | Outpatient (CLI) | payer OTHER, SELFPAY ==
[2022-07-01 05:13] LABS: Cyclic Citrullinated Peptide <16 Units (<20)
[2022-07-01 08:39] LABS: RNP Antibodies <1.0; SS-A <1.0; SS-B <1.0
[2022-07-01 13:56] LABS: ANCA Screen Negative (Negative)
== END 2022-06-28 17:45 | disposition home or self-care (01) ==
LOC: ANHLAB 17:49
PROVIDERS: PCP Family Medicine
DX: R76.8 Other specified abnormal immunological findings in serum (principal)
CPT/HCPCS: 36415; 86036; 86038; 86039; 86225; 86235

== ENCOUNTER 2022-10-24 10:11 | Outpatient (CLI) | payer OTHER, SELFPAY ==
[2022-10-24 11:07] LABS: Basophils Percent Auto 0.3 % (0.2-1.2); Eosinophils Absolute Auto 0.1 K/mm3 (0-0.3); Eosinophils Percent Auto 1.2 % (0-4.4); Hematocrit 42.4 % (37.0-47.0); Hemoglobin 13.6 g/dL (12.0-15.0); Immature Granulocyte Absolute 0.04 K/mm3 (0.00-0.031); Immature Granulocyte Percent A 0.4 % (0-0.5); Lymphocytes Absolute Auto 1.99 K/mm3 (0.9-3.2); Lymphocytes Percent Auto 22.1 % (18.3-44.2); Mean Corpuscular HGB Conc 32.1 g/dl (32-36); Mean Corpuscular Hemoglobin 30.9 pg (26-34); Mean Corpuscular Volume 96.4 fl (80-100); Monocytes Absolute Auto 0.5 K/mm3 (0.1-0.6); Monocytes Percent Auto 5.4 % (2.6-8.5); Neutrophils Absolute Auto 6.4 K/mm3 (1.3-6.7); Neutrophils Percent Auto 70.6 % (45.5-73.1); Platelet Count Result 332 k/mm3 (150-375); Red Cell Distribution Width 12.9 % (11.5-14.5)
[2022-10-24 11:21] LABS: Alanine Aminotransferase 22 U/L (6-35); Albumin Level 4.1 g/dL (3.5-5.1); Alkaline Phosphatase 141 U/L (38-126); Anion Gap 4 mmol/L (8-16); Aspartate Amino Transferase 23 U/L (14-36); Bilirubin,Total 0.5 mg/dL (0.2-1.3); Blood Urea Nitrogen 16 mg/dL (7-17); Calcium 8.8 mg/dL (8.4-10.2); Carbon Dioxide 31 mmol/L (22-30); Chloride 101 mmol/L (98-107); Cholesterol 163 mg/dL (0-200); Estimated Glomerular Filt Rate 57; Glucose 94 mg/dL (65-110); HDL Direct 73 mg/dL; Potassium 3.9 mmol/L (3.4-5.0); Sodium 136 mmol/L (137-145); Triglycerides 58 mg/dL (<150)
[2022-10-24 11:32] LABS: LDL Cholesterol Direct 74 mg/dL
[2022-10-24 11:49] LABS: Thyroid Stimulating Hormone 0.962 uIU/mL (0.465-4.680)
== END 2022-10-24 10:12 | disposition home or self-care (01) ==
LOC: ANHLAB 10:13
PROVIDERS: PCP Family Medicine; Visit Provider Physician Assistant Medical
DX: E78.5 Hyperlipidemia, unspecified (principal); I51.89 Other ill-defined heart diseases; R73.09 Other abnormal glucose; R63.5 Abnormal weight gain
CPT/HCPCS: 36415; 80053; 80061; 84443; 85025

== ENCOUNTER 2023-01-08 15:15 | Emergency (ER) | payer OTHER, SELFPAY ==
--- NOTE | ~2023-01-08 | XR_ITS ---
EXAMINATION: XR chest 2V DATE: 01/08/2023 16:03 INDICATION: 2 weeks of cough and congestion TECHNIQUE: frontal and lateral views of the chest were obtained. COMPARISON: Chest radiograph dated 01/26/2022 FINDINGS: The lungs remain clear with no focal airspace opacities, pulmonary edema, pleural effusion or pneumot horax. The cardiomediastinal silhouette is normal. Cholecystectomy clips in upper abdomen. Mild thora cic spondylosis. IMPRESSION: 1. No acute cardiopulmonary disease. Reviewed, dictated and finalized at location A.
[2023-01-08 15:27] VITALS: BP 141/72; PULSE 72; RESP 16; TEMP 37.2; O2SAT 100
[2023-01-08 15:30] VITALS: BP 141/72; PULSE 72; RESP 16; TEMP 37.2; O2SAT 100
--- NOTE | 2023-01-08 15:35 | ED.URI ---
HPI - URI/Sore Throat General Chief Complaint: Upper Respiratory Infection Stated Complaint: Sinus Time Seen by Provider: 01/08/23 15:35 Source: patient Mode of arrival: ambulatory Limitations: no limitations History of Present Illness HPI Narrative: Patient is a 62-year-old female who presents with 2 weeks of sinus congestion, sinus pressure, cough and minor sore throat. Denies any fever, chills, ear pain, nausea, vomiting, diarrhea. Patient states she has tried [id number] medication with only mild relief. Patient has a history of COPD. Related Data Home Medications Medication Instructions Recorded Confirmed carvedilol 6.25 mg tablet (Coreg) 6.25 mg PO Q12H 07/08/21 01/08/23 clopidogrel 75 mg tablet 75 mg PO DAILY 10/07/21 01/08/23 rosuvastatin 20 mg tablet 20 mg PO DAILY 10/07/21 01/08/23 aspirin 81 mg tablet,delayed 81 mg PO DAILY 11/07/22 01/08/23 release furosemide 40 mg tablet mg 01/08/23 Allergies Allergy/AdvReac Type Severity Reaction Status Date / Time codeine AdvReac Mild Vomiting Verified 01/08/23 15:28 Review of Systems Review of Systems: All systems reviewed & are unremarkable except as noted in HPI and below Constitutional: Constitutional: Denies body ache(s), Denies chills, Denies fatigue, Denies fever(s), Denies headache(s), Denies malaise and Denies weakness Eyes: Eyes: Denies blurry vision, Denies itchy eyes and Denies loss of vision ENT: Denies otalgia, Denies headache(s), Reports nasal congestion, Reports nasal discharge, Denies sinus pain, Reports sinus pressure and Reports sore throat Cardiovascular: Cardiovascular: Denies chest pain, Denies irregular heart rhythm and Denies dyspnea Respiratory: Respiratory: Reports cough and Denies dyspnea Gastrointestinal: Gastrointestinal: Denies abdominal pain, Denies diarrhea, Denies nausea and Denies vomiting Musculoskeletal: Musculoskeletal: Denies back pain, Denies myalgias and Denies arthralgias Integumentary/Breasts: Skin/Breast: Denies pruritus and Denies rash Neurologic: Denies headache(s), Denies loss of vision and Denies weakness Psychiatric: Psychiatric: Reports no additional psychiatric complaints Endocrine: Endocrine: Denies fatigue Allergic/Immunologic: Allergic/Immunologic: Denies itchy eyes PMFSH Past Medical History Medical History Abnormal echocardiogram BMI 31.0-31.9,adult BMI 32.0-32.9,adult BMI 33.0-33.9,adult BMI 35.0-35.9,adult BMI 36.0-36.9,adult Chronic obstructive pulmonary disease, unspecified Diastolic dysfunction Family history of colon cancer in father Gastroesophageal reflux disease Iliac vein stenosis, left Obesity GANGA (obstructive sleep apnea) Sinusitis Sleep apnea, unspecified Surgical History Surgical History History of cardiac cath Family History Family History Father Hypertension Carcinoma of colon Family history of diabetes mellitus in first degree relative Grandparent Family history of heart disease in male family member before age 55 Diabetes mellitus Mother Mental health disorder Other Family history of mental disorder Social History Social History Smoking status: Never smoker Second hand tobacco smoke exposure: Yes Alcohol intake: current Substance use: never Substance use type: does not use Lack of Transportation: No Lack of Food: Never True Current Housing: I Have Housing Concerned About Future Housing: No Difficulty Paying Gas/Electric Bills: No Difficulty Paying for Meds: No Currently Unemployed: No Education: High School Diploma/GED Difficulty w/ Childcare or Family Care: No Living arrangements: alone Occupation/Education: occupation Additional occupation/education comments:
== END 2023-01-08 16:50 | disposition home or self-care (01) ==
PROVIDERS: Emergency Provider Nurse Practitioner Family; PCP Family Medicine
DX: J32.9 Chronic sinusitis, unspecified (principal); J40 Bronchitis, not specified as acute or chronic; J44.9 Chronic obstructive pulmonary disease, unspecified; K21.9 Gastro-esophageal reflux disease without esophagitis; E66.9 Obesity, unspecified; Z68.34 Body mass index [BMI] 34.0-34.9, adult; Z79.82 Long term (current) use of aspirin
CPT/HCPCS: 71046; 99213; G0463

== ENCOUNTER 2023-02-26 15:00 | Emergency (ER) | payer OTHER, SELFPAY ==
--- NOTE | 2023-02-26 15:02 | ED.DENTAL ---
HPI - Dental/Oral General Chief complaint: Dental/Oral Stated complaint: irritation in mouth Time Seen by Provider: 02/26/23 15:02 Source: patient Mode of arrival: ambulatory Limitations: no limitations History of Present Illness HPI Narrative: Pham is a 8-year-old female patient presenting to the clinic today with complaints of irritation in her mouth 3-4 days. She reports she has had a lot of sinus drainage and a lot of allergies. Reports that she is having itching and burning in her mouth and throat. Uses a budesonide formoterol inhaler. Denies any fever or chills. Thinks she may have thrush. Related Data Home Medications Medication Instructions Recorded Confirmed carvedilol 6.25 mg tablet (Coreg) 6.25 mg PO Q12H 07/08/21 02/26/23 clopidogrel 75 mg tablet 75 mg PO DAILY 10/07/21 02/26/23 rosuvastatin 20 mg tablet 20 mg PO DAILY 10/07/21 02/26/23 aspirin 81 mg tablet,delayed 81 mg PO DAILY 11/07/22 02/26/23 release furosemide 40 mg tablet 40 mg PO DAILY 01/08/23 02/26/23 Allergies Allergy/AdvReac Type Severity Reaction Status Date / Time codeine AdvReac Mild Vomiting Verified 02/26/23 15:09 Review of Systems Review of Systems: Pertinent positives per HPI. Patient denies any fever, chills, rash, headache, visual changes, dizziness, cough, shortness of breath, chest pain, palpitations, nausea, vomiting, diarrhea, constipation, abdominal pain, or any urinary issues. [facility]LY [facility] Past Medical History Medical History Abnormal echocardiogram BMI 31.0-31.9,adult BMI 32.0-32.9,adult BMI 33.0-33.9,adult BMI 34.0-34.9,adult BMI 35.0-35.9,adult BMI 36.0-36.9,adult Chronic obstructive pulmonary disease, unspecified Contact dermatitis Diastolic dysfunction Family history of colon cancer in father Gastroesophageal reflux disease Iliac vein stenosis, left Obesity GANGA (obstructive sleep apnea) Sinusitis Sleep apnea, unspecified Surgical History Surgical History History of cardiac cath Family History Family History Father Hypertension Carcinoma of colon Family history of diabetes mellitus in first degree relative Grandparent Family history of heart disease in male family member before age 55 Diabetes mellitus Mother Mental health disorder Depression Other Family history of mental disorder Social History Social History Smoking status: Never smoker Second hand tobacco smoke exposure: Yes Alcohol intake: current Substance use: never Substance use type: does not use Lack of Transportation: No Lack of Food: Never True Current Housing: I Have Housing Concerned About Future Housing: No Difficulty Paying Gas/Electric Bills: No Difficulty Paying for Meds: No Currently Unemployed: No Education: High School Diploma/GED Difficulty w/ Childcare or Family Care: No Living arrangements: alone Occupation/Education: occupation 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 There is no relevant family history pertinent to the patient complaint. Exam Narrative: General: Well-developed, well nourished, in no apparent distress Head: Normocephalic, atraumatic Eyes: Pupils equally round and reactive to light bilaterally, EOM intact, sclera and conjunctive clear, no discharge, lids normal Ears: TMs intact and clear, ear canals clear, no drainage, grossly hearing normal. Nose: Nares patent, no discharge, no inflammation, no sinus tenderness. Mouth: Oral pharynx without lesions or masses, good
[2023-02-26 15:10] VITALS: BP 112/70; PULSE 76; RESP 14; TEMP 36.9; O2SAT 99
== END 2023-02-26 15:33 | disposition home or self-care (01) ==
PROVIDERS: Emergency Provider Nurse Practitioner Family; PCP Family Medicine
DX: B37.0 Candidal stomatitis (principal); J44.9 Chronic obstructive pulmonary disease, unspecified; K21.9 Gastro-esophageal reflux disease without esophagitis; E66.9 Obesity, unspecified; Z68.33 Body mass index [BMI] 33.0-33.9, adult; Z79.82 Long term (current) use of aspirin
CPT/HCPCS: 99213; G0463

== ENCOUNTER 2024-03-04 16:42 | Emergency (ER) | payer OTHER, SELFPAY ==
[2024-03-04 17:04] VITALS: BP 100/76; PULSE 87; RESP 18; TEMP 36.7; O2SAT 100
--- NOTE | 2024-03-04 17:54 | ED_ITS ---
HPI - General Adult General Chief complaint: Unspecified Stated complaint: right side of face swollen,stuffy nose,cough,tired Time Seen by Provider: 03/04/24 17:33 Source: patient and RN notes reviewed Mode of arrival: ambulatory Limitations: no limitations History of Present Illness HPI narrative: Patient presents today complaining of sudden-onset right preauricular facial swelling that has since spread to the right upper neck area through the day. Denies fever, shortness of breath, difficulty swallowing. She has had some cold symptoms through the week to include congestion, headache, body aches. She curr ently rates her pain 3-08/01 and has tried no medication for symptoms prior to arrival. Related Data Home Medications Medication Instructions Recorded Confirmed carvedilol 6.25 mg tablet (Coreg) 6.25 mg PO Q12H 07/08/21 02/26/23 clopidogrel 75 mg tablet 75 mg PO DAILY 10/07/21 02/26/23 rosuvastatin 20 mg tablet 20 mg PO DAILY 10/07/21 03/04/24 aspirin 81 mg tablet,delayed 81 mg PO DAILY 11/07/22 03/04/24 release furosemide 40 mg tablet 40 mg PO DAILY 01/08/23 03/04/24 Allergies Allergy/AdvReac Type Severity Reaction Status Date / Time codeine AdvReac Mild Vomiting Verified 03/04/24 17:29 Review of Systems Review of Systems: CONSTITUTIONAL: Denies body aches, fever, chills, or sweats. EYES: Denies visual changes, redness, or discharge. ENT: Denies rhinorrhea, sore throat, or otalgia.+ facial swelling, nasal congestion CARDIOVASCULAR: Denies chest pain, palpitations, or edema. RESPIRATORY: Denies cough or dyspnea. GASTROINTESTINAL: Denies abdominal pain, nausea, vomiting, or diarrhea. GENITOURINARY: Denies dysuria or hematuria. SKIN: Denies rash, itching, or wounds. MUSCULOSKELETAL: Denies back pain, joint pain, or myalgia. NEUROLOGIC: Denies numbness, tingling, or weakness.+ headache PSYCH: Denies depression or anxiety. [facility] Past Medical History Medical History Abnormal echocardiogram BMI 31.0-31.9,adult BMI 32.0-32.9,adult BMI 33.0-33.9,adult BMI 34.0-34.9,adult BMI 35.0-35.9,adult BMI 36.0-36.9,adult Chronic obstructive pulmonary disease, unspecified Contact dermatitis Diastolic dysfunction Family history of colon cancer in father Gastroesophageal reflux disease Iliac vein stenosis, left Obesity GANGA (obstructive sleep apnea) Sinusitis Sleep apnea, unspecified Surgical History Surgical History History of cardiac cath Family History Family History Father Hypertension Carcinoma of colon Family history of diabetes mellitus in first degree relative Grandparent Family history of heart disease in male family member before age 55 Diabetes mellitus Mother Mental health disorder Depression Other Family history of mental disorder Social History Social History Smoking status: Never smoker Second hand tobacco smoke exposure: Yes Alcohol intake: current Substance use: never Substance use type: does not use Lack of Transportation: No Lack of Food: Never True Current Housing: I Have Housing Concerned About Future Housing: No Difficulty Paying Gas/Electric Bills: No Difficulty Paying for Meds: No Currently Unemployed: No Education: High School Diploma/GED Difficulty w/ Childcare or Family Care: No Living arrangements: alone Occupation/Education: occupation 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 Please see nursing chart for further information. There is no relevant family history pertinent to the presenting complaint Exam Narrative: GENERAL: Well-appearing, well-nourished, and in no acute distress. HEAD: Normocephalic, atraumatic. EYES: EOMI. No redness or drainage. Conjunctivae normal. ENT: Mucous membranes pink and moist. Significant right preauricular swelling extending to the right neck. Tender to palpation. No purulence expressed from the Stensen duct. No stone palpated orally. No trimus noted, but patient notes pain when opening mouth. NECK: Normal AROM. CHEST: No respiratory distress. Clear to auscultation. HEART: Regular rate and rhythm. No murmur appreciated. EXTREMITIES: Normal range of motion. No edema. SKIN: Warm, dry, no rash. Capillary refill normal. Normal skin turgor. NEURO: No focal deficits. Alert and oriented x3. Gait steady. PSYCH: Normal affect. No signs of depression or anxiety. Course Course Level of Care: Express Care Visit Vital Signs Vital signs: Vital Signs Temperature 98.0 F 03/04/24 17:04 Pulse Rate 87 03/04/24 17:04 Respiratory Rate 18 03/04/24 17:04 Blood Pressure 100/76 03/04/24 17:04 Pulse Oximetry 100 03/04/24 17:04 Oxygen Delivery Room Air 03/04/24 17:04 Temperature 98.0 F 03/04/24 17:04 Pulse Rate 87 03/04/24 17:04 Respiratory Rate 18 03/04/24 17:04 Blood Pressure 100/76 03/04/24 17:04 Pulse Oximetry 100 03/04/24 17:04 Oxygen Delivery Room Air 03/04/24 17:04 Reviewed Transfer Transfered to: [place] Transportation: Other (Private vehicle) Transfer rationale: Facial swelling, parotitis Accepting physician: Zuhair Atwood comments: Report given to Sherita Gates PA-C Medical Decision Making [facility] Narrative Medical decision making narrative: Due to patient's rapid facial swelling and extension into the neck area, recommend ER transfer for further evaluation and treatment. Patient agrees with plan. Differential Diagnosis Differential Diagnosis: Parotitis, osteomyelitis, parotid abscess Vital Signs Vital Signs: Vital Signs Temperature 98.0 F 03/04/24 17:04 Pulse Rate 87 03/04/24 17:04 Respiratory Rate 18 03/04/24 17:04 Blood Pressure 100/76 03/04/24 17:04 Pulse Oximetry 100 03/04/24 17:04 Oxygen Delivery Room Air 03/04/24 17:04 Temperature 98.0 F 03/04/24 17:04 Pulse Rate 87 03/04/24 17:04 Respiratory Rate 18 03/04/24 17:04 Blood Pressure 100/76 03/04/24 17:04 Pulse Oximetry 100 03/04/24 17:04 Oxygen Delivery Room Air 03/04/24 17:04 Critical Care Time Critical Care Time Critical Care Time: No Discharge Plan Discharge Clinical Impression: Acute parotitis Patient Disposition: Acute Care Hospital Condition: Stable Prescriptions: No Action furosemide 40 mg tablet 40 mg PO DAILY aspirin 81 mg tablet,delayed release (DR/EC) 81 mg PO DAILY nystatin 100,000 unit/mL suspension 5 ml PO QID 14 Days Qty: 280 0RF Rx Instructions: swish and swallow clobetasol 0.05 % cream 1 applic topical BID Qty: 45 0RF carvedilol [Coreg] 6.25 mg tablet 6.25 mg PO Q12H Rx Instructions: must administer with a meal/food clopidogrel 75 mg tablet 75 mg PO DAILY rosuvastatin 20 mg tablet 20 mg PO DAILY fluticasone propionate [Flonase Allergy Relief] 50 mcg/actuation spray,suspension 2 spray NASAL DAILY PRN (Reason: Congestion) Qty: 16 2RF hydroxyzine HCl 50 mg tablet 50 mg PO TID PRN (Reason: itching) Qty: 40 0RF Symbicort 160-4.5 mcg/actuation HFA aerosol inhaler See Rx Instructions .ROUTE .COMPLEX Qty: 30.6 3RF Dose Instruction: USE 2 INHALATIONS EVERY 12 HOURS Rx Instructions: USE 2 INHALATIONS EVERY 12 HOURS lorazepam [Ativan] 0.5 mg tablet 0.5 mg PO TID PRN (Reason: Anxiety) Qty: 60 1RF sulfacetamide sodium 10 % drops 1 drp ophthalmic (eye) Q4H Qty: 15 0RF venlafaxine 150 mg capsule,extended release 24hr 150 mg PO DAILY Qty: 90 1RF albuterol sulfate 90 mcg/actuation HFA aerosol inhaler 2 inh inhalation Q4H PRN (Reason: shortness of breath or wheezing) Qty: 8.5 0RF omeprazole 20 mg capsule,delayed release(DR/EC) See Rx Instructions .ROUTE .COMPLEX Qty: 90 1RF Dose Instruction: TAKE 1 CAPSULE EVERY MORNING Rx Instructions: TAKE 1 CAPSULE EVERY MORNING fexofenadine 180 mg tablet 180 mg PO DAILY Qty: 90 0RF bupropion HCl [Wellbutrin XL] 300 mg tablet extended release 24 hr 300 mg PO QAM Qty: 10 3RF Rx Instructions: short supply Follow-up/Referrals: Guillermo Westbrook MD [Primary Care Provider] - Time of Disposition: 17:54
== END 2024-03-04 17:57 | disposition short-term general hospital (02) ==
PROVIDERS: Emergency Provider Nurse Practitioner; PCP Family Medicine
DX: K11.21 Acute sialoadenitis (principal); J44.9 Chronic obstructive pulmonary disease, unspecified; K21.9 Gastro-esophageal reflux disease without esophagitis; E66.9 Obesity, unspecified; Z68.31 Body mass index [BMI] 31.0-31.9, adult; Z79.82 Long term (current) use of aspirin
CPT/HCPCS: 99212; G0463

== ENCOUNTER 2024-03-04 18:27 | Emergency (ER) | payer OTHER, SELFPAY ==
--- NOTE | ~2024-03-04 | CT_ITS ---
CT soft tissue neck w con Ordering provider: Sherita Pimentel PA-C History: 63 years Female with . R sided facial swelling . Comparison: None. Technique: CT soft tissues neck was performed with contrast. . The dose-length product was 537.64 mGy -cm. Findings: LOWER HEAD: The visualized brain parenchyma, optic globes/orbits and mastoids are unremarkable. Air- fluid levels within the maxillary sinuses. The mastoid air cells are well aerated. SALIVARY GLANDS: Asymmetric right salivary gland enlargement, in comparison to the left without other douglas abnormal enhancement or attenuation. PAROTID GLANDS: Asymmetric enlargement of the right parotid gland (in comparison to the left) with perez rrounding inflammatory change, findings suggestive of parotitis. No rim-enhancing fluid collection is identified to suggest abscess formation. Possible 17 mm sialolith is present (axial sequence image 47). THYROID: Homogeneous enhancement and attenuation. SUPRAHYOID DEEP SPACES: Unremarkable CAROTID ARTERIES: Unremarkable JUGULAR VEINS: Patent and symmetric TONSILS: Unremarkable ORAL CAVITY: Obscured by dental amalgam. PHARYNX, LARYNX AND TRACHEA: Primarily patent with mass effect at the level of the ramus of the chen ble within the supraglottic pharynx further evaluation of this area is limited secondary to streak me tallic artifact from the patient's dentition. SUPERFICIAL SOFT TISSUES: Extensive bilateral lymphadenopathy, right greater than left. THORACIC INLET/VISUALIZED UPPER CHEST: Unremarkable SKELETAL: Age appropriate degenerative change. IMPRESSION: Findings consistent with acute parotitis with a possible 1.7 mm right-sided sialolith appreciated. Mass effect on the patient's airway is noted within the supraglottic pharynx, as detailed above. Reviewed, dictated and finalized at location A. [employer] IMPRESSION: Findings consistent with acute parotitis with a possible 1.7 mm right-sided abbey lolith appreciated. Mass effect on the patient's airway is noted within the supraglottic pharynx, a s detailed above.
[2024-03-04 18:29] VITALS: BP 153/80; PULSE 83; RESP 17; TEMP 36.6; O2SAT 100
[2024-03-04 18:44] LABS: Basophils Percent Auto 0.2 % (0.2-1.2); Eosinophils Absolute Auto 0.2 K/mm3 (0-0.3); Eosinophils Percent Auto 1.8 % (0-4.4); Hematocrit 41.5 % (37.0-47.0); Hemoglobin 13.6 g/dL (12.0-15.0); Immature Granulocyte Absolute 0.03 K/mm3 (0.00-0.031); Immature Granulocyte Percent A 0.3 % (0-0.5); Mean Corpuscular HGB Conc 32.8 g/dl (32-36); Mean Corpuscular Hemoglobin 31.4 pg (26-34); Mean Corpuscular Volume 95.8 fl (80-100); Mean Platelet Volume 10.2 fl (7.4-10.4); Monocytes Absolute Auto 0.6 K/mm3 (0.1-0.6); Monocytes Percent Auto 6.5 % (2.6-8.5); Neutrophils Absolute Auto 6.4 K/mm3 (1.3-6.7); Neutrophils Percent Auto 66.2 % (45.5-73.1); Platelet Count Result 293 k/mm3 (150-375); Red Blood Count 4.33 M/mm3 (4.2-5.4); Red Cell Distribution Width 12.8 % (11.5-14.5); White Blood Count 9.6 K/mm3 (4.5-10.0)
[2024-03-04 19:05] LABS: Anion Gap 7 mmol/L (4-12); Blood Urea Nitrogen 10 mg/dL (7-17); Calcium 9.1 mg/dL (8.4-10.2); Carbon Dioxide 26 mmol/L (22-30); Chloride 106 mmol/L (98-107); Estimated CRCL calculation 66 ml/min; Estimated Glomerular Filt Rate > 60; Glucose 94 mg/dL (65-110); Potassium 3.4 mmol/L (3.4-5.0); Sodium 139 mmol/L (137-145)
--- NOTE | 2024-03-04 19:31 | ED_ITS ---
HPI - General Adult General Chief complaint: Dental/Oral Stated complaint: swelling to right face Time Seen by Provider: 03/04/24 19:18 History of Present Illness HPI narrative: patient is a 63-year-old female who presents emergency department with chief complaint of swelling of the right side of the jaw and face. The patient reports that some upper respiratory symptoms and today noticed that she started having swelling at the lower right mandible and reports that she had some pain in her jaw area the patient reports that she has had no problems swallowing denies trismus denies tongue swelling patient reports that she has history of diastolic heart failure and reports that she is not having any chest pain or shortness of breath. Related Data Home Medications Medication Instructions Recorded Confirmed carvedilol 6.25 mg tablet (Coreg) 6.25 mg PO Q12H 07/08/21 02/26/23 clopidogrel 75 mg tablet 75 mg PO DAILY 10/07/21 02/26/23 rosuvastatin 20 mg tablet 20 mg PO DAILY 10/07/21 03/04/24 aspirin 81 mg tablet,delayed 81 mg PO DAILY 11/07/22 03/04/24 release furosemide 40 mg tablet 40 mg PO DAILY 01/08/23 03/04/24 Allergies Allergy/AdvReac Type Severity Reaction Status Date / Time codeine AdvReac Mild Vomiting Verified 03/04/24 18:32 Review of Systems Review of Systems: A 10 system review of systems was completed on the patient and is negative except for what is stated in the HPI. Nursing and ancillary documentation was reviewed. [facility] Past Medical History Medical History Abnormal echocardiogram BMI 31.0-31.9,adult BMI 32.0-32.9,adult BMI 33.0-33.9,adult BMI 34.0-34.9,adult BMI 35.0-35.9,adult BMI 36.0-36.9,adult Chronic obstructive pulmonary disease, unspecified Contact dermatitis Diastolic dysfunction Family history of colon cancer in father Gastroesophageal reflux disease Iliac vein stenosis, left Obesity GANGA (obstructive sleep apnea) Sinusitis Sleep apnea, unspecified Surgical History Surgical History History of cardiac cath Family History Family History Father Hypertension Carcinoma of colon Family history of diabetes mellitus in first degree relative Grandparent Family history of heart disease in male family member before age 55 Diabetes mellitus Mother Mental health disorder Depression Other Family history of mental disorder Social History Social History Smoking status: Never smoker Second hand tobacco smoke exposure: Yes Alcohol intake: current Substance use: never Substance use type: does not use Lack of Transportation: No Lack of Food: Never True Current Housing: I Have Housing Concerned About Future Housing: No Difficulty Paying Gas/Electric Bills: No Difficulty Paying for Meds: No Currently Unemployed: No Education: High School Diploma/GED Difficulty w/ Childcare or Family Care: No Living arrangements: alone Occupation/Education: occupation 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 HEAD: Normocephalic, atraumatic. EYES: PERRLA and EOMI. ENT: Nares clear, no rhinorrhea or epistaxis. Mucous membranes moist. Swelling present in the right parotid area NECK: Supple. CHEST: Clear to auscultation. No respiratory distress. HEART: Regular rate and rhythm. No murmur heard. Normal peripheral pulses. ABDOMEN: Soft, nontender, nondistended, normal active bowel sounds. EXTREMITIES: Normal range of motion. No edema. SKIN: Warm, dry, no rash. NEURO: No focal deficits. Alert and oriented x3. PSYCH: Normal mood and affect. Course Vital Signs Vital signs: Vital Signs Temperature 36.6 C 03/04/24 18:29 Pulse Rate 83 03/04/24 18:29 Respiratory Rate 17 03/04/24 18:29 Blood Pressure 153/80 H 03/04/24 18:29 Pulse Oximetry 100 03/04/24 18:29 Oxygen Delivery Room Air 03/04/24 18:29 Temperature 36.6 C 03/04/24 18:29 Pulse Rate 83 03/04/24 18:29 Respiratory Rate 17 03/04/24 18:29 Blood Pressure 153/80 H 03/04/24 18:29 Pulse Oximetry 100 03/04/24 18:29 Oxygen Delivery Room Air 03/04/24 18:29 Medical Decision Making [facility] Narrative Medical decision making narrative: differential diagnosis includes celebrate stone, bronchitis, airway swelling CT scan of the soft tissue neck showed findings consistent with her otitis with possible 1.7 mm sialolith there was mass effect noted in the patient's airway the patient currently does not have any stridor or signs of acute airway compromise the patient is able to handle her own secretions and is currently asymptomatic. The patient was given 10 mg of Decadron and 3 g Unasyn currently we do not have ENT coverage the case will be discussed with the transfer center at [facility]. [facility] did not have any available beds at this time and she was placed on a wait list the case was discussed with Dr. Klein at [facility] who reviewed the images and agreed that since the patient is showing no signs of airway compromise to treat with steroids anti biotics and conservative treatment for salivary stone the patient will be instructed to strict return precautions and will also be given the information for Dr. Yadav in the ENT office at [facility] Vital Signs Vital Signs: Vital Signs Temperature 36.6 C 03/04/24 18:29 Pulse Rate 83 03/04/24 18:29 Respiratory Rate 17 03/04/24 18:29 Blood Pressure 153/80 H 03/04/24 18:29 Pulse Oximetry 100 03/04/24 18:29 Oxygen Delivery Room Air 03/04/24 18:29 Temperature 36.6 C 03/04/24 18:29 Pulse Rate 83 03/04/24 18:29 Respiratory Rate 17 03/04/24 18:29 Blood Pressure 153/80 H 03/04/24 18:29 Pulse Oximetry 100 03/04/24 18:29 Oxygen Delivery Room Air 03/04/24 18:29 Lab Data 03/04/24 18:38 03/04/24 18:38 Labs: Lab Results 03/04/24 Range/Units 18:38 WBC 9.6 (4.5-10.0) K/mm3 RBC 4.33 (4.2-5.4) M/mm3 Hgb 13.6 (12.0-15.0) g/dL Hct 41.5 (37.0-47.0) % MCV 95.8 (80-100) fl MCH 31.4 (26-34) pg MCHC 32.8 (32-36) g/dl RDW 12.8 (11.5-14.5) % Plt Count 293 (150-375) k/mm3 MPV 10.2 (7.4-10.4) fl Immature Gran % (Auto) 0.3 (0-0.5) % Neut % (Auto) 66.2 (45.5-73.1) % Lymph % (Auto) 25.0 (18.3-44.2) % [place] % (Auto) 6.5 (2.6-8.5) % Eos % (Auto) 1.8 (0-4.4) % Baso % (Auto) 0.2 (0.2-1.2) % Lymph # (Auto) 2.40 (0.9-3.2) K/mm3 [place] # (Auto) 0.6 (0.1-0.6) K/mm3 Eos # (Auto) 0.2 (0-0.3) K/mm3 Baso # (Auto) 0.0 (0.0-0.1) K/mm3 Abs Immat Gran (auto) 0.03 (0.00-0.031) K/mm3 Absolute Neuts (auto) 6.4 (1.3-6.7) K/mm3 Absolute Nucleated RBC 0.000 (0.0-0.012) K/mm3 Nucleated RBC % 0.0 (0.0-0.2) % Sodium 139 (137-145) mmol/L Potassium 3.4 (3.4-5.0) mmol/L Chloride 106 (98-107) mmol/L Carbon Dioxide 26 (22-30) mmol/L Anion Gap 7 (4-12) mmol/L BUN 10 D (7-17) mg/dL Creatinine 0.90 (0.7-1.0) mg/dL Estim Creat Clear Calc 66 ml/min Estimated GFR > 60 (59 - ) Glucose 94 (65-110) mg/dL Calcium 9.1 (8.4-10.2) mg/dL Discharge Plan Discharge Clinical Impression: Acute parotitis, Salivary calculus Patient Disposition: Home, Self-Care Condition: Stable Instructions: Antibiotic Form, Sialoadenitis (ED) Additional Instructions: the imaging shows that you have a stone in your salivary gland. There is swelling in the gland that is concerning for infection. you were given IV antibiotics in the emergency department and steroids. There was a question as to whether there was some swelling near your airway. If you develop shortness of breath problems swallowing or any concerns please return to the emergency department immediately please use sour lemon drops candies to help express the stone. It is also recommended that you stay well hydrated please follow-up with Dr. Yadav at [facility] please call [phone] to schedule an appointment Prescriptions: New amoxicillin-pot clavulanate 875-125 mg tablet 1 tablet PO Q12H 10 Days Qty: 20 0RF prednisone 20 mg tablet 40 mg PO DAILY 5 Days Qty: 10 0RF No Action furosemide 40 mg tablet 40 mg PO DAILY aspirin 81 mg tablet,delayed release (DR/EC) 81 mg PO DAILY nystatin 100,000 unit/mL suspension 5 ml PO QID 14 Days Qty: 280 0RF Rx Instructions: swish and swallow clobetasol 0.05 % cream 1 applic topical BID Qty: 45 0RF carvedilol [Coreg] 6.25 mg tablet 6.25 mg PO Q12H Rx Instructions: must administer with a meal/food clopidogrel 75 mg tablet 75 mg PO DAILY rosuvastatin 20 mg tablet 20 mg PO DAILY fluticasone propionate [Flonase Allergy Relief] 50 mcg/actuation spray,suspension 2 spray NASAL DAILY PRN (Reason: Congestion) Qty: 16 2RF hydroxyzine HCl 50 mg tablet 50 mg PO TID PRN (Reason: itching) Qty: 40 0RF Symbicort 160-4.5 mcg/actuation HFA aerosol inhaler See Rx Instructions .ROUTE .COMPLEX Qty: 30.6 3RF Dose Instruction: USE 2 INHALATIONS EVERY 12 HOURS Rx Instructions: USE 2 INHALATIONS EVERY 12 HOURS lorazepam [Ativan] 0.5 mg tablet 0.5 mg PO TID PRN (Reason: Anxiety) Qty: 60 1RF sulfacetamide sodium 10 % drops 1 drp ophthalmic (eye) Q4H Qty: 15 0RF venlafaxine 150 mg capsule,extended release 24hr 150 mg PO DAILY Qty: 90 1RF albuterol sulfate 90 mcg/actuation HFA aerosol inhaler 2 inh inhalation Q4H PRN (Reason: shortness of breath or wheezing) Qty: 8.5 0RF omeprazole 20 mg capsule,delayed release(DR/EC) See Rx Instructions .ROUTE .COMPLEX Qty: 90 1RF Dose Instruction: TAKE 1 CAPSULE EVERY MORNING Rx Instructions: TAKE 1 CAPSULE EVERY MORNING fexofenadine 180 mg tablet 180 mg PO DAILY Qty: 90 0RF bupropion HCl [Wellbutrin XL] 300 mg tablet extended release 24 hr 300 mg PO QAM Qty: 10 3RF Rx Instructions: short supply Follow-up/Referrals: Guillermo Westbrook MD [Primary Care Provider] - Stand Alone Forms: Work/School Release IP Time of Disposition: 22:23
[2024-03-04] MEDS: AMPICILLIN SULB 3 GM/NS 100 ML 3 GM/100 ML VIAL IVPB (21:12)
[2024-03-04] MEDS: dexAMETHasone SOD PHOS INJ 10 MG/ML 1 ML VIAL IV PUSH (21:12)
[2024-03-04 23:17] VITALS: BP 142/80; PULSE 78; RESP 14; O2SAT 98
[2024-03-08 07:55] LABS: Estimated CRCL calculation 60 ml/min; Estimated Glomerular Filt Rate 56
== END 2024-03-04 23:19 | disposition home or self-care (01) ==
PROVIDERS: Physician Assistant; Emergency Provider Emergency Medicine; PCP Family Medicine
DX: K11.21 Acute sialoadenitis (principal); K11.5 Sialolithiasis; I50.30 Unspecified diastolic (congestive) heart failure; J44.9 Chronic obstructive pulmonary disease, unspecified; K21.9 Gastro-esophageal reflux disease without esophagitis; G47.33 Obstructive sleep apnea (adult) (pediatric)
CPT/HCPCS: 36415; 70491; 80048; 82565; 85025; 96365; 96375; 99284; J0295; J1100; Q9967

== ENCOUNTER 2024-08-20 16:36 | Outpatient (CLI) | payer OTHER, SELFPAY ==
--- NOTE | ~2024-08-20 | XR_ITS ---
XR abdomen/kub 1V 08/20/2024 16:56 INDICATION: Hematuria TECHNIQUE: KUB COMPARISON: 07/06/2015 FINDINGS: Bowel gas pattern is normal. There is a large volume of fecal retention in the colon. There is a vascular stent in the pelvis. There are cholecystectomy clips. There is no evidence of free air , mass, organomegaly, ascites or obstruction. No abnormal calculi are seen. The bones appear intact . IMPRESSION: 1: No acute abdominal abnormality identified. Reviewed, dictated and finalized at location A.
== END 2024-08-20 16:37 | disposition home or self-care (01) ==
LOC: MICIMG 16:38
PROVIDERS: PCP Family Medicine; Visit Provider Nurse Practitioner Family
DX: R31.9 Hematuria, unspecified (principal); R81 Glycosuria
CPT/HCPCS: 74018

== ENCOUNTER 2024-08-22 16:32 | Outpatient (CLI) | payer OTHER, SELFPAY ==
--- OUTSIDE RECORDS SUMMARY | 2024-08-22 16:35 | XMS_ITS | Clinical Summary ---
Author Organization [facility] [employer] Address [address] [place] [address] Care Team Providers Care Distresser Name Role Phone Guillermo Westbrook MD Primary Care Provider [phone] Source Comments [facility] [employer],non-owned Affiliates and Associated Physician Practices is amultiple site organization consisting of ambulatory clinics and hospital sitesin [place], [place], [place] and [place]. This disclosure is being madepursuant to the Care Everywhere program and may not contain all information available regarding this patient. Last updated 18.[facility] [employer] Allergies Active Allergy Reactions Criticality Noted Date Comments Codeine Vomiting High 03/31/2021 Medications * Be aware that medications may not be up to date on this document. Alwaysverify current medications with the patient. furosemide (Lasix) 40 MG tablet Take 1 (one) tablet by mouth every morning 2 Active omeprazole (PriLOSEC) 20 MG capsule 2 Active carvedilol (Coreg) 6.25 MG tablet 3 Active venlafaxine XR 24hr (Effexor XR) 150 MG capsule 3 Active rosuvastatin (Crestor) 20 MG tablet Take 1 (one) tablet by mouth at bedtime 3 Active nitroGLYCERIN (Nitrostat) 0.[address] 1 TAB UNDER THE TONGUE EVERY 5 MINS NEEDED FOR CHEST PAIN UP TO 3 DOSES 2 Active levonorgestrel (Mirena, 52 MG,) 20 MCG/DAY IUD 1 (one) device by Intrauterine route once Active fluticasone propionate (Flonase) 50 MCG/ACT nasal spray Mason 1 (one) spray to 2 (two) sprays into each nostril once daily Active Aspirin Low Dose 81 MG tablet Take 1 (one) tablet by mouth once daily 3 Active Active Problems Problem Noted Date Diagnosed Date Acute pharyngitis, unspecified etiology 03/04/20 24 Family History Medical History Relation Name Comments Cancer - Colon Father Relation Name Status Comments Father Social History Tobacco Use Types Packs/Day Years Used Date Smoking Tobacco: Never Smokeless Tobacco: Never Tobacco Cessation:Counseling Given: Not Answered Alcohol Use Standard Drinks/Week Comments Not Currently 0 (1 standard drink = 0.6 oz pur e alcohol) ocassionlly PHQ-2 Answer Date Recorded PHQ2 TOTAL SCORE 2 05/23/2022 Comments No Sex and Gender Information Value Date Recorded Sex Assigned at Not on file Legal Sex Female 11:34 AM CDT Gender Identity Not on file Sexual Orientation Not on file Last Filed Vital Signs Vital Sign Reading Time Taken Comments Blood Pressure 116/68 07/26/2022 4:02 PM CDT Pulse 87 07/26/2022 4:02 PM CDT Temperature 36.7 C (98 F) 07/26/2022 4:02 PM CDT Respiratory Rate - - Oxygen Saturation 97% 07/26/2022 4:02 PM CDT Inhaled Oxygen Concentration - - Weight 95.5 kg (210 lb 9.6 oz) 07/26/2022 4:02 P M CDT Height - - Body Mass Index - - Plan of Treatment Health Maintenance Due Date Last Done Comments COLOGUARD (AGES 45-75) - COL ON CA SCREENING 1962 COLON MONITORING 1962 COLONOSCOPY - COLON CA SCREENING 1962 CT COLONOGRAPHY - COLON CA SCREENING 1962 Colorectal Cancer Screening 1962 FIT - COLON CA SCREENING 1962 FLEX SIG - COLON CA SCREENING 1962 MAMMOGRAM 1962 PAP SMEAR 1962 HIV SCREENING 1977 HEPATITIS C SCREENING 04/28/1980 DTAP/TDAP/TD VACCINES (1 - Tdap) 1981 PNEUMOCOCCAL VACCINE 50+ (1 of 1 - PCV) 2012 ZOSTER VACCINE (1 of 2) 2012 COVID-19 VACCINE (1 - 2023-2 5 season) 2023 DEPRESSION SCREENING 04/24/2024 05/23/2022 INFLUENZA VACCINE (Season Ended) 2024 Respiratory Syncytial Virus (RSV) Vaccine Pt: or over 60 yrs (1 - 1-dose 75+ series) 2037 HEPATITIS B VACCINE Aged Out No longe r eligible based on patient's age to complete this topic HIB VACCINE Aged Out No longer eligi ble based on patient's age to complete this topic HPV VACCINE Aged Out No longer eligi ble based on patient's age to complete this topic MENINGOCOCCAL (Group B) VACC INE SHARED DECISION-MAKING Aged Out No longer eligibl e based on patient's age to complete this topic MENINGOCOCCAL GROUPS A/C/Y/W VACCINE Aged Out No longer eligible b ased on patient's age to complete this topic Insurance Care Teams Distresser Relationship Specialty Start Date End Date Guillermo Westbrook MD [address] [place] [address] PCP - General 11/17/21
--- OUTSIDE RECORDS SUMMARY | 2024-08-22 16:35 | XMS_ITS | Clinical Summary ---
Author Organization [facility] [place] [address] Address [address] [place] [address] Care Team Providers Care Peoplesoft Crm Developer Name Role Phone Guillermo Westbrook MD Primary Care Provider [phone] Allergies Active Allergy Reactions Criticality Noted Date Comments Codeine Vomiting High 03/31/2021 Medications LORazepam (ATIVAN) 0.5 mg tablet Take 1 tablet (0.5 mg total) by mouth every 6 (six) hours as needed 1 Active omeprazole (PriLOSEC) 20 mg capsule Take 1 capsule (20 mg total) by mouth daily 1 Active naproxen (NAPROSYN) 500 mg tablet Take 1 tablet (500 mg total) by mouth 2 (two) times a day as needed 1 Active budesonide-form oteroL (SYMBICORT) 160-4.5 mcg/actuation inhaler Inhale 2 puffs 2 (two) times a day Active albuterol HFA (PROVENTIL HFA,VENTOLIN HFA,PROAIR HFA) 90 mcg/actuation inhaler Inhale 2 puffs every 4 (four) hours as needed Active DULoxetine DR (CYMBALTA) 30 mg capsule 2 Active venlafaxine (EFFEXOR) 25 mg tablet Take by mouth daily Active buPROPion XL (WELLBUTRIN XL) 300 mg 24 hr tablet 4 Active empagliflozin (Jardiance) 10 mg tablet Take 1 tablet (10 mg total) by mouth daily 90 tablet 3 4 Active furosemide (LASIX) 40 mg tablet TAKE 1 TABLET EVERY MORNING 90 tablet 3 4 Active fexofenadine (AARON) 180 mg tablet 4 Active venlafaxine XR (EFFEXOR-XR) 150 mg 24 hr capsule 4 Active clopidogreL (PLAVIX) 75 mg tablet Take 1 tablet (75 mg total) by mouth daily 90 tablet 6 4 Active losartan (COZAAR) 50 mg tablet Take 1 tablet (50 mg total) by mouth daily 7 tablet 5 Active rosuvastatin (CRESTOR) 20 mg tablet Take 1 tablet (20 mg total) by mouth nightly 7 tablet 5 Active rosuvastatin (CRESTOR) 20 mg tablet TAKE 1 TABLET NIGHTLY 90 tablet 3 4 08/06/19 25 Discontinu ed(Reorder ) losartan (COZAAR) 50 mg tablet Take 1 tablet (50 mg total) by mouth daily 90 tablet 3 4 08/06/19 25 Discontinu ed(Reorder ) Active Problems Problem Noted Date Diagnosed Date Leg swelling 08/25/2021 Overview (08/25/2021): Added automatically from request for surgery [id number] Precordial pain 05/26/2021 Overview (05/26/2021): Added automatically from request for surgery [id number] MCGOWAN (dyspnea on exertion) 05/26/2021 Overview (05/26/2021): Added automatically from request for surgery [id number] Encounters Date Type Department Care Team Description 08/05/2024 Telephone [facility] Cardiology [address] [place] [address] [place] Carr[place] [phone] Martin Green MD from Last 3 Months Surgical History Surgery Date Site/Laterality Comments CHOLECYSTECTOMY HERNIA REPAIR UMBILICAL HERNIA REPAIR CYST REMOVAL from upper back x1 BLADDER SUSPENSION N/A Medical History Medical History Date Comments Sleep apnea COPD (chronic obstructive pulmonary disease) (HC C) Hypertension GERD (gastroesophageal reflux disease) PONV (postoperative nausea and vomiting) Delayed emergence from general anesthesia Motion sickness Anxiety Depression Precordial pain 05/2021 Swelling of lower leg bilaterall y Arthritis of both knees Family History Medical History Relation Name Comments Cancer Father colon Depression Mother Relation Name Status Comments Father Mother Social History Tobacco Use Types Packs/Day Years Used Date Smoking Tobacco: Never Smokeless Tobacco: Never Tobacco Cessation:Counseling Given: Not Answered AUDIT-C Answer Date Recorded Q1: How often do you have a drink containing alc ohol? Never 09/17/2021 Average Number of Drinks Not on file 022 Q3: How often do you have si x or more drinks on one occasion? 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 Gender Identity Not on file Sexual Orientation Not on file Obstetrics History Last Filed Vital Signs Vital Sign Reading Time Taken Comments Blood Pressure 98/60 10/23/2023 1:37 PM CDT Pulse 83 10/23/2023 1:37 PM CDT Temperature 37.1 C (98.8 F) 09/17/2021 9:16 AM CDT Respiratory Rate 14 10/23/2023 1:37 PM CDT Oxygen Saturation 97% 10/23/2023 1:37 PM CDT Inhaled Oxygen Concentration - - Weight 90.7 kg (200 lb) 10/23/2023 1:37 PM CDT Height 170.2 cm (5' 7 ) 10/23/2023 1:37 PM CDT Body Mass Index 31.32 10/23/2023 1:37 PM CDT Plan of Treatment Health Maintenance Due Date Last Done Comments Breast Cancer Screening-Mammogram 1962 Cervical Cancer Screening 1962 Colon Cancer Screening-Colonoscopy 1962 Depression Screening 1962 Hepatitis C Screening 1962 DTaP/Tdap/Td Vaccine (1 - Tdap) 1973 Hepatitis B Screening 1980 Regular Well Visit/Exam 18-64 1980 Pneumococcal vaccine <65 (1 of 2 - PCV) 1981 Zoster Vaccine (1 of 2) 2012 Covid-19 Vaccine (3 - season) 2023, 12/18/2020 Influenza Vaccine (Season Ended) 2024 Medical Devices Implanted Type Area Savings Teller Device Identifier Shelf Expiration Date Model / Serial / Lot [employer] Reynaldo Stent Venous Wall [id number] - [id number] Implanted:Qty: 1 on 09/17/2021 by Martin Green MD at [facility] [employer]do 08/11/2022 [id number] / / [id number] Insurance [facility] CHOICE PLUS Care Teams Peoplesoft Crm Developer Relationship Specialty Start Date End Date Guillermo Westbrook MD PCP - General Family Medicine 03/31/21
--- OUTSIDE RECORDS SUMMARY | 2024-08-22 16:35 | XMS_ITS | Referral Summary ---
Author Organization [facility] [place] [address] Address [address] [place] [address] Care Team Providers Care Pastry Sous Chef Name Role Phone Guillermo Westbrook MD Primary Care Provider Encounters Date Type Department Care Team Description 08/05/2024 Telephone [facility] Medical [facility] Cardiology [address] [place] [phone] Martin Green MD from Last 3 Months Allergies Active Allergy Reactions Criticality Noted Date [...] (08/25/2021): Added automatically from request for surgery [id number] Precordial pain 05/26/2021 Overview (05/26/2021): Added automatically from request for surgery [id number] MCGOWAN (dyspnea on exertion) 05/26/2021 Overview (05/26/2021): Added automatically from request for surgery [id number] Social History Tobacco Use Types Packs/Day Years [...] on file 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 Gender Identity Not on file Sexual Orientation [...] 10/23/2023 1:37 PM CDT Plan of Treatment Not on file Medical Devices Implanted Type Area Pitch Flaker Device Identifier Shelf Expiration Date Model / Serial / Lot [employer]enu Reynaldo Stent Venous Wall [id number] - [id number] Implanted:Qty: 1 on 09/17/2021 by Martin Green MD at [facility] [place] [employer] 08/11/2022 [id number] / / [id number] Insurance [facility]ICE [facility]/PP[facility] Address: [facility] [address] [place] [address] [facility] CHOICE [facility]US [facility] H[facility]/PPO Address: [place] [phone] Care Teams Pastry Sous Chef Relationship Specialty Start Date End Date Guillermo Westbrook MD PCP - General Family Medicine 03/31/21
[2024-08-22 17:19] LABS: Hematocrit 39.3 % (37.0-47.0); Hemoglobin 12.4 g/dL (12.0-15.0); Mean Corpuscular HGB Conc 31.6 g/dl (32-36); Mean Corpuscular Hemoglobin 30.7 pg (26-34); Mean Corpuscular Volume 97.3 fl (80-100); Mean Platelet Volume 9.7 fl (7.4-10.4); Platelet Count Result 309 k/mm3 (150-375); Red Blood Count 4.04 M/mm3 (4.2-5.4); Red Cell Distribution Width 13.2 % (11.5-14.5); White Blood Count 9.2 K/mm3 (4.5-10.0)
[2024-08-22 17:32] LABS: Alanine Aminotransferase 34 U/L (6-35); Albumin Level 4.1 g/dL (3.5-5.1); Alkaline Phosphatase 139 U/L (38-126); Anion Gap 8 mmol/L (4-12); Aspartate Amino Transferase 31 U/L (14-36); Bilirubin,Total 0.3 mg/dL (0.2-1.3); Blood Urea Nitrogen 19 mg/dL (7-17); Carbon Dioxide 28 mmol/L (22-30); Chloride 103 mmol/L (98-107); Estimated Glomerular Filt Rate > 60; Glucose 93 mg/dL (65-110); Potassium 3.6 mmol/L (3.4-5.0); Sodium 139 mmol/L (137-145)
[2024-08-22 17:54] LABS: Hemoglobin A1C 5.7 % (<5.7)
[2024-08-22 18:01] LABS: Creatinine Urine 17.7 mg/dL
[2024-08-22 18:29] LABS: MALB Creatinine Ratio < 33.9 mg/g (0-30); Microalbumin Urine Random < 6.0 mg/L (0-16.7)
== END 2024-08-22 16:33 | disposition home or self-care (01) ==
LOC: ANHLAB 16:33
PROVIDERS: PCP Family Medicine; Visit Provider Nurse Practitioner Family
DX: R31.9 Hematuria, unspecified (principal); R81 Glycosuria
CPT/HCPCS: 36415; 80053; 82043; 83036; 85027

== ENCOUNTER 2024-09-03 15:32 | Outpatient (CLI) | payer OTHER, SELFPAY ==
--- NOTE | ~2024-09-03 | CT_ITS ---
Non-contrast CT scan of the Abdomen and Pelvis Clinical indication: Hematuria Technique: 2.5 mm axial scans were obtained through the abdomen and pelvis without intravenous or or al contrast. Dose reduction technique was used on this scan by utilizing automated exposure control a nd iterative reconstruction technique. The dose-length product (DLP) was 710.57 mGy-cm. Findings: Images through the lung bases reveal no abnormalities. Punctate nonobstructing right renal stone present. No other stones identified. No hydronephrosis. The liver, spleen, pancreas, and adrenals appear normal. Cholecystectomy clips are present. There is no aortic aneurysm. Stent present in the left common iliac vein. There is no evidence of bowel obstruction. Images through the pelvis were performed. There is no evidence of ascites or lymphadenopathy. Urinary bladder unremarkable. IUD in place. No adnexal mass seen. Impression: Punctate nonobstructing right renal stone. IUD present. Left common iliac vein stent. Reviewed, dictated and finalized at [facility]. Impression: Punctate nonobstructing right renal stone. IUD present. Left common iliac vein stent.
--- OUTSIDE RECORDS SUMMARY | 2024-09-03 15:38 | XMS_ITS | Clinical Summary ---
Author Organization [facility] Address [address] [facility] [place] [address] Care Team Providers Care Portrait Painter Name Role Phone Guillermo Westbrook MD Primary Care Provider [phone] Source Comments [facility],non-owned Affiliates and Associated Physician Practices is amultiple site organization consisting of ambulatory clinics and hospital sitesin [place], [place] and [place]. This disclosure is being madepursuant to the Care Everywhere program and may not contain all information available regarding this patient. Last updated 18.[facility] Allergies Active Allergy Reactions Criticality Noted Date [...] fluticasone propionate (Flonase) 50 MCG/ACT nasal spray [place]mond 1 (one) spray to 2 (two) sprays [...] to complete this topic Insurance Care Teams Portrait Painter Relationship Specialty Start Date End Date Guillermo Westbrook MD [address] [place] [address] PCP - General 11/17/21
--- OUTSIDE RECORDS SUMMARY | 2024-09-03 15:38 | XMS_ITS | Clinical Summary ---
Author Organization [facility] [place] [address] Address [address] [place] [address] Care Team Providers Care Director Of Market Research Name Role Phone Guillermo Westbrook MD Primary Care Provider [phone] Allergies Active Allergy Reactions Criticality Noted Date Comments Codeine Vomiting High 03/31/2021 Medications LORazepam (ATIVAN) 0.5 mg tablet Take 1 tablet (0.5 mg total) by mouth every 6 (six) hours as needed 03/06/20 21 Active omeprazole (PriLOSEC) 20 mg capsule Take 1 capsule (20 mg total) by mouth daily 03/04/20 21 Active naproxen (NAPROSYN) 500 mg tablet Take 1 tablet (500 mg total) by mouth 2 (two) times a day as needed 03/21/20 21 Active budesonide-for moteroL (SYMBICORT) 160-4.5 mcg/actuation inhaler Inhale 2 puffs 2 (two) times a day Active albuterol HFA (PROVENTIL HFA,VENTOLIN HFA,PROAIR HFA) 90 mcg/actuation inhaler Inhale 2 puffs every 4 (four) hours as needed Active DULoxetine DR (CYMBALTA) 30 mg capsule 11/03/19 22 Active venlafaxine (EFFEXOR) 25 mg tablet Take by mouth daily Active buPROPion XL (WELLBUTRIN XL) 300 mg 24 hr tablet 05/28/19 24 Active furosemide (LASIX) 40 mg tablet TAKE 1 TABLET EVERY MORNING 90 tablet 3 09/11/19 24 Active fexofenadine (AARON) 180 mg tablet 10/09/19 24 Active venlafaxine XR (EFFEXOR-XR) 150 mg 24 hr capsule 08/23/19 24 Active clopidogreL (PLAVIX) 75 mg tablet Take 1 tablet (75 mg total) by mouth daily 90 tablet 6 10/23/19 24 Active losartan (COZAAR) 50 mg tablet Take 1 tablet (50 mg total) by mouth daily 7 tablet 08/06/19 25 Active rosuvastatin (CRESTOR) 20 mg tablet Take 1 tablet (20 mg total) by mouth nightly 7 tablet 08/06/19 25 Active empagliflozin (Jardiance) 10 mg tablet TAKE 1 TABLET DAILY 90 tablet 1 09/02/19 25 Active empagliflozin (Jardiance) 10 mg tablet Take 1 tablet (10 mg total) by mouth daily 90 tablet 3 07/27/19 24 025 Discontinued rosuvastatin (CRESTOR) 20 mg tablet TAKE 1 TABLET NIGHTLY 90 tablet 3 09/11/19 24 025 Discontinued(Re order) losartan (COZAAR) 50 mg tablet Take 1 tablet (50 mg total) by mouth daily 90 tablet 3 10/25/19 24 025 Discontinued(Re order) Active Problems Problem Noted Date Diagnosed Date Leg swelling 08/25/2021 Overview (08/25/2021): Added automatically from request for surgery [id number] Precordial pain 05/26/2021 Overview (05/26/2021): Added automatically from request for surgery [id number] MCGOWAN (dyspnea on exertion) 05/26/2021 Overview (05/26/2021): Added automatically from request for surgery [id number] Encounters Date Type Department Care Team Description 08/05/2024 Telephone [facility] Medical Group Cardiology [address] [phone] Martin Green MD from Last 3 Months Surgical History Surgery Date Site/Laterality Comments CHOLECYSTECTOMY HERNIA REPAIR UMBILICAL HERNIA REPAIR CYST REMOVAL from upper back x1 BLADDER SUSPENSION N/A Medical History Medical History Date Comments Sleep apnea COPD (chronic obstructive pulmonary disease) ( C) Hypertension GERD (gastroesophageal reflux disease) PONV [...] on file 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 Gender Identity Not on file Sexual Orientation [...] Ended) 2024 Medical Devices Implanted Type Area Drug Department Worker Device Identifier Shelf Expiration Date Model / Serial / Lot Jelastic Reynaldo Stent Venous Wall [id number] - [id number] Implanted:Qty: 1 on 09/17/2021 by Martin Green MD at [facility] [employer] 08/11/2022 [id number] / / [id number] Insurance CHOICE PLUS [facility] H[facility]/PPO [place]: [place] [address] [id number] [place] [address] CHOICE PLUS [facility] H[facility]/PPO Address: [place] [address] Care Teams Director Of Market Research Relationship Specialty Start Date End Date Guillermo Westbrook MD PCP - General Family Medicine 03/31/21
--- OUTSIDE RECORDS SUMMARY | 2024-09-03 15:38 | XMS_ITS | Referral Summary ---
Author Organization [facility] [place] [address] Address [address] [place] [address] Care Team Providers Care Manufacturing Specialist Name Role Phone Guillermo Westbrook MD Primary Care Provider [phone] Encounters Date Type Department Care Team Description 08/05/2024 Telephone [facility] Medical Group Cardiology [address] [place] [phone] Martin Green MD from Last 3 [...] Active DULoxetine DR (CYMBALTA) 30 mg capsule 07/12/20 22 Active venlafaxine (EFFEXOR) 25 mg tablet [...] (08/25/2021): Added automatically from request for surgery [id number] Precordial pain 05/26/2021 Overview (05/26/2021): Added automatically from request for surgery [id number] MCGOWAN (dyspnea on exertion) 05/26/2021 Overview (05/26/2021): Added automatically from request for surgery [id number] Social History Tobacco Use Types Packs/Day Years [...] on file 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 Gender Identity Not on file Sexual Orientation [...] on file Medical Devices Implanted Type Area Insurance Risk Manager Device Identifier Shelf Expiration Date Model / Serial / Lot HDF Stent Venous Wall [id number] - [id number] Implanted:Qty: 1 on 09/17/2021 by Martin Green MD at [facility] [employer] Reyn[employer]do 08/11/2022 [id number] / / [id number] Insurance [facility] CHOICE PLUS [facility] CHOICE PLUS [place] [id number] Care Teams Manufacturing Specialist Relationship Specialty Start Date End Date Guillermo Westbrook MD PCP - General Family Medicine 03/31/21
== END 2024-09-03 15:33 | disposition home or self-care (01) ==
PROVIDERS: PCP Family Medicine; Visit Provider Nurse Practitioner Family
DX: N20.0 Calculus of kidney (principal); Z95.820 Peripheral vascular angioplasty status with implants and grafts; Z97.5 Presence of (intrauterine) contraceptive device
CPT/HCPCS: 74176

== ENCOUNTER 2024-09-04 06:56 | Outpatient (CLI) | payer OTHER, SELFPAY ==
--- OUTSIDE RECORDS SUMMARY | 2024-09-04 06:59 | XMS_ITS | Referral Summary ---
Author Organization [facility] [place] [address] Address [address] [place] [address] Care Team Providers Care Copper Roller Handler Printing Name Role Phone Guillermo Westbrook MD Primary Care Provider Encounters Date Type Department Care Team Description 08/05/2024 Telephone [facility] Medical Group Cardiology [address] [place] [phone] Martin Green MD from Last 3 [...] times a day as needed 1 Active budesonide-for moteroL (SYMBICORT) 160-4.5 mcg/actuation inhaler [...] 300 mg 24 hr tablet 4 Active furosemide (LASIX) 40 mg tablet [...] by mouth nightly 7 tablet 5 Active empagliflozin (Jardiance) 10 mg tablet TAKE 1 TABLET DAILY 90 tablet 1 5 Active empagliflozin (Jardiance) 10 mg tablet Take 1 tablet (10 mg total) by mouth daily 90 tablet 3 4 09/02/19 25 Discontinued Active Problems Problem Noted Date Diagnosed Date Leg swelling 08/25/2021 Overview (08/25/2021): Added automatically from request for surgery [id number] Precordial pain 05/26/2021 Overview (05/26/2021): Added automatically from request for surgery [id number] MCGOWAN (dyspnea on exertion) 05/26/2021 Overview (05/26/2021): Added automatically from request for surgery [id number] Social History Tobacco Use Types Packs/Day Years [...] on file 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 Gender Identity Not on file Sexual Orientation [...] on file Medical Devices Implanted Type Area Assistant Women'S Basketball Coach Device Identifier Shelf Expiration Date Model / Serial / Lot Digital Perception Stent Venous Wall [id number] - [id number] Implanted:Qty: 1 on 09/17/2021 by Martin Green MD at [facility] [employer] 08/11/2022 [id number] / / [id number] Insurance CHOICE PLUS [facility] HMO/PPO Address: [facility] [address] [place] [address] [facility] CHOICE PLUS [facility] HMO/PPO Address: [place] [address] Care Teams Copper Roller Handler Printing Relationship Specialty Start Date End Date Guillermo Westbrook MD PCP - General Family Medicine 03/31/21
--- OUTSIDE RECORDS SUMMARY | 2024-09-04 06:59 | XMS_ITS | Clinical Summary ---
Author Organization [facility] [employer] Address [address] [facility] [place] [address] Care Team Providers Care Turkey Picker Name Role Phone Guillermo Westbrook MD Primary Care Provider [phone] Source Comments [facility] [employer],non-owned Affiliates and Associated Physician Practices is amultiple site organization consisting of ambulatory clinics and hospital sitesin [place], [place], [place] and [place]. This disclosure is being madepursuant to the Care Everywhere program and may not contain all information available regarding this patient. Last updated 18.[facility] [employer] Allergies Active Allergy Reactions Criticality Noted Date [...] fluticasone propionate (Flonase) 50 MCG/ACT nasal spray [place] 1 (one) spray to 2 (two) sprays [...] to complete this topic Insurance Care Teams Turkey Picker Relationship Specialty Start Date End Date Guillermo Westbrook MD [address] [place] [address] PCP - General 11/17/21
--- OUTSIDE RECORDS SUMMARY | 2024-09-04 06:59 | XMS_ITS | Clinical Summary ---
Author Organization [facility] [address] Address [address] [place] [address] Care Team Providers Care Top Lift Trimmer Name Role Phone Guillermo Westbrook MD Primary Care Provider [phone] Allergies Active Allergy Reactions Criticality Noted Date [...] (08/25/2021): Added automatically from request for surgery [id number] Precordial pain 05/26/2021 Overview (05/26/2021): Added automatically from request for surgery [id number] MCGOWAN (dyspnea on exertion) 05/26/2021 Overview (05/26/2021): Added automatically from request for surgery [id number] Encounters Date Type Department Care Team Description 08/05/2024 Telephone [facility] Cardiology [address] [place] [phone] Martin Green MD from Last 3 [...] on file 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 Gender Identity Not on file Sexual Orientation [...] Ended) 2024 Medical Devices Implanted Type Area Prize Fighter Device Identifier Shelf Expiration Date Model / Serial / Lot Rank By Search Stent Venous Wall [id number] - [id number] Implanted:Qty: 1 on 09/17/2021 by Martin Green MD at [facility] 08/11/2022 [id number] / / [id number] Insurance Member Subscriber Plan / Payer (Ef fective 2020-Present) Name:Pham Schreiber Relation to Subscriber:Self Name:Pham Schreiber Payer ID:[id number] (NAIC) Type:[facility] HMO/PPO Address: [place] [phone] Care Teams Top Lift Trimmer Relationship Specialty Start Date End Date Guillermo Westbrook MD PCP - General Family Medicine 03/31/21
[2024-09-04 08:07] LABS: Anion Gap 6 mmol/L (4-12); Blood Urea Nitrogen 13 mg/dL (7-17); Calcium 8.6 mg/dL (8.4-10.2); Carbon Dioxide 30 mmol/L (22-30); Chloride 104 mmol/L (98-107); Cholesterol 143 mg/dL (0-200); Estimated Glomerular Filt Rate 60; Glucose 108 mg/dL (65-110); HDL Direct 84 mg/dL; Potassium 3.6 mmol/L (3.4-5.0); Sodium 140 mmol/L (137-145); Triglycerides 62 mg/dL (<150)
[2024-09-04 08:18] LABS: LDL Cholesterol Direct 40 mg/dL
== END 2024-09-04 06:57 | disposition home or self-care (01) ==
LOC: ANHLAB 06:57
PROVIDERS: PCP Family Medicine; Visit Provider Physician Assistant Medical
DX: E78.5 Hyperlipidemia, unspecified (principal); N28.9 Disorder of kidney and ureter, unspecified
CPT/HCPCS: 36415; 80048; 80061

== ENCOUNTER 2024-09-24 11:47 | Outpatient (CLI) | payer OTHER, SELFPAY ==
--- NOTE | ~2024-09-24 | MMUS_ITS ---
PROCEDURE: MM DIAGNOSTIC DAMION BI W LONNY AND US BREAST RT LIMITED INDICATION: 51-year old female; palpable right breast lump for 2 to 3 weeks in the upper outer region towards the tail of breast. Lump was also felt at clinical examination by patient's care provider. N othing is palpable today so a marker was not placed. COMPARISON: 11/14/2011 TECHNIQUE: Digital breast tomosynthesis CC and MLO views of the BILATERAL breast were obtained with c omputer-aided detection to assist in interpretation of the study. FINDINGS: The breasts are heterogeneously dense, which may obscure small masses. There are no suspicious masses, calcifications, architectural distortion or any other abnormality in either breast. RIGHT BREAST ULTRASOUND FINDINGS: There is no sonographic abnormality that correlates to the area of palpable lump identified by the pa tient. Benign-appearing circumscribed mass with fatty hilum compatible with an intramammary lymph nod e is seen at 9:00, 7 cm from the nipple. IMPRESSION: NO MAMMOGRAPHIC OR SONOGRAPHIC FINDING CORRELATES TO THE PALPABLE LUMP IN THE BILATERAL BREAST. FURTH ER EVALUATION OF PATIENT'S PALPABLE LUMP SHOULD BE BASED ON CLINICAL EXAMINATION FINDINGS. FOLLOW-UP CLINICALLY WARRANTED. BI-RADS 2, BENIGN Reviewed, dictated and finalized at location B. IMPRESSION: NO MAMMOGRAPHIC OR SONOGRAPHIC FINDING CORRELATES TO THE PALPABLE LUMP IN THE B ILATERAL BREAST. FURTHER EVALUATION OF PATIENT'S PALPABLE LUMP SHOULD BE BASED ON CLINICAL EXAMINATION FINDINGS. FOLLOW-UP CLINICALLY WARRANTED. BI-RADS 2, BENIGN
--- OUTSIDE RECORDS SUMMARY | 2024-09-24 11:49 | XMS_ITS | Clinical Summary ---
Author Organization [facility] [address] Address [address] [place] [address] Care Team Providers Care Vice President Medical Affairs Name Role Phone Guillermo Westbrook MD Primary Care Provider [phone] Allergies Active Allergy Reactions Criticality Noted Date [...] 300 mg 24 hr tablet 4 Active fexofenadine (AARON) 180 mg tablet 4 Active venlafaxine XR (EFFEXOR-XR) 150 mg 24 hr capsule 4 Active losartan (COZAAR) 50 mg tablet Take 1 tablet (50 mg total) by mouth daily 7 tablet 5 Active rosuvastatin (CRESTOR) 20 mg tablet Take 1 tablet (20 mg total) by mouth nightly 7 tablet 5 Active empagliflozin (Jardiance) 10 mg tablet TAKE 1 TABLET DAILY 90 tablet 1 5 Active clopidogreL (PLAVIX) 75 mg tablet TAKE 1 TABLET DAILY 90 tablet 5 Active furosemide (LASIX) 40 mg tablet TAKE 1 TABLET EVERY MORNING 90 tablet 5 Active empagliflozin (Jardiance) 10 mg tablet Take 1 tablet (10 mg total) by mouth daily 90 tablet 3 4 09/02/19 25 Discontinued furosemide (LASIX) 40 mg tablet TAKE 1 TABLET EVERY MORNING 90 tablet 3 4 09/05/19 25 Discontinued clopidogreL (PLAVIX) 75 mg tablet Take 1 tablet (75 mg total) by mouth daily 90 tablet 6 4 09/05/19 25 Discontinued Active Problems Problem Noted Date Diagnosed Date Leg swelling 08/25/2021 Overview (08/25/2021): Added automatically from request for surgery [id number] Precordial pain 05/26/2021 Overview (05/26/2021): Added automatically from request for surgery [id number] MCGOWAN (dyspnea on exertion) 05/26/2021 Overview (05/26/2021): Added automatically from request for surgery [id number] Encounters Date Type Department Care Team Description 08/05/2024 Telephone [facility] Cardiology [address] [place] [address] [place] Carrillo [phone] Martin Green MD from [...] on file 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 Gender Identity Not on file Sexual Orientation [...] 1:37 PM CDT Height 170.2 cm (5' 7) 10/23/2023 1:37 PM CDT Body Mass Index [...] Ended) 2024 Medical Devices Implanted Type Area Photostat Operator Device Identifier Shelf Expiration Date Model / Serial / Lot [employer] Reynaldo Stent Venous Wall [id number] - [id number] Implanted:Qty: 1 on 09/17/2021 by Martin Green MD at [facility] [employer] 08/11/2022 [id number] / / [id number] Insurance [id number] [place] [address] CHOICE PLUS [place] [id number] Care Teams Vice President Medical Affairs Relationship Specialty Start Date End Date Guillermo Westbrook MD PCP - General Family Medicine 12/8/21
--- OUTSIDE RECORDS SUMMARY | 2024-09-24 11:49 | XMS_ITS | Clinical Summary ---
Author Organization [facility] Address [address] [place] [address] Care Team Providers Care Cloth Wire Weaver Name Role Phone Guillermo Westbrook MD Primary Care Provider [phone] Source Comments [facility],non-owned Affiliates and Associated Physician Practices is amultiple site organization consisting of ambulatory clinics and hospital sitesin [place], [place], [place] and [place]. This disclosure is being madepursuant to the Care Everywhere program and may not contain all information available regarding this patient. Last updated 18.[facility] Allergies Active Allergy Reactions Criticality Noted Date [...] fluticasone propionate (Flonase) 50 MCG/ACT nasal spray [place] 1 (one) spray to 2 (two) sprays [...] to complete this topic Insurance Care Teams Cloth Wire Weaver Relationship Specialty Start Date End Date Guillermo Westbrook MD [address] [place] [address] PCP - General 11/17/21
--- OUTSIDE RECORDS SUMMARY | 2024-09-24 11:49 | XMS_ITS | Referral Summary ---
Author Organization [facility] [address] Address [address] [place] [address] Care Team Providers Care Oracle Erp Architect Name Role Phone Guillermo Westbrook MD Primary Care Provider Encounters Date Type Department Care Team Description 08/05/2024 Telephone [facility] Cardiology [address] [place] [phone] Martin Green MD from Last 3 [...] (08/25/2021): Added automatically from request for surgery [id number] Precordial pain 05/26/2021 Overview (05/26/2021): Added automatically from request for surgery [id number] MCGOWAN (dyspnea on exertion) 05/26/2021 Overview (05/26/2021): Added automatically from request for surgery [id number] Social History Tobacco Use Types Packs/Day Years [...] on file 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 Gender Identity Not on file Sexual Orientation [...] on file Medical Devices Implanted Type Area Appeals And Generalist Clerk Device Identifier Shelf Expiration Date Model / Serial / Lot [employer] Reynaldo Stent Venous Wall [id number] - [id number] Implanted:Qty: 1 on 09/17/2021 by Martin Green MD at [facility] [employer] Reynaldo 08/11/2022 [id number] / / [id number] Insurance [facility] CHOICE PLUS [facility] CHOICE PLUS Care Teams Oracle Erp Architect Relationship Specialty Start Date End Date Guillermo Westbrook MD PCP - General Family Medicine 03/31/21
== END 2024-09-24 11:48 | disposition home or self-care (01) ==
PROVIDERS: PCP Family Medicine; Visit Provider Physician Assistant Medical
DX: N63.11 Unspecified lump in the right breast, upper outer quadrant (principal)
CPT/HCPCS: 76642; 77062; 77066; G0279

== ENCOUNTER 2024-10-03 12:41 | Outpatient (CLI) | payer OTHER, SELFPAY ==
--- NOTE | ~2024-10-03 | DEXA_ITS ---
Bone Density Report Name: DOMINGO WALKER Age: 64 Sex: Female Ethnicity: White Date of : 1960 Indication: postmenopausal; screening for osteoporosis; height loss; inflammatory bowel disease; Referring Provider: BRET HERNÁNDEZ Study: Bone densitometry was performed. Exam Date: October 03, 2024 Accession number: [id number] Bone Density: Region BMD T-score Z-score Classification AP Spine(L1-L4) 0.734 -2.8 -1.3 Osteoporosis Femoral Neck (Left) 0.528 -2.9 -1.5 Osteoporosis Total Hip (Left) 0.672 -2.2 -1.1 Osteopenia Femoral Neck (Right) 0.617 -2.1 -0.7 Osteopenia Total Hip (Right) 0.723 -1.8 -0.7 Osteopenia Total Hip Mean 0.698 -2.0 -0.9 Osteopenia World Health Organization criteria for BMD impression classify patients as: Normal (T-score at or above -1.0), Osteopenia (T-score between -1.0 and -2.5), or Osteoporosis (T-score at or below -2.5). 10-year Fracture Risk: FRAX not reported because: Some T-score for Spine Total or Hip Total or Femoral Neck at or below -2.5 Clinical Information Provided by Patient: Has the following medical conditions: Inflammatory bowel diseases Patient maximum height was 67 Menopause Age: 57 No regular weight bearing exercise Drinks caffeinated beverages Onset of menses at age 14 Number of children 3 Impression: The patient has osteoporosis, based on the Left Femoral Neck T-score. Discussion: INCREASED RISK OF FRACTURE. BONE DENSITY IS UNDESIRABLY LOW AT ONE OR MORE SKELETAL SITES, CONSISTENT WITH POSTMENOPAUSAL OSTEOPOROSIS. This patient's lowest T-score meets the World Health Organization's (WHO) criteria for osteoporosis at one or more sites (T-score -2.5 or below). In untreated patients, the risk of osteoporotic fracture increases approximately two-fold for each 1.0 SD decrease in T-score. Low bone density is not the only risk factor for fracture; also consider factors such as patient's age, frailty or poor health, risk of falling, risk of injury, previous osteoporotic fracture, family history of osteoporosis, cigarette smoking, low body weight, etc. Not everyone with low bone mineral density has osteoporosis; osteomalacia and other metabolic bone disorders should also be considered. Patients who have osteoporosis should be evaluated for specific diseases and conditions (secondary causes) that may cause or contribute to bone loss. The [place] Association of Clinical Endocrinologists (AACE) and National Osteoporosis Foundation (NOF) recommend pharmacologic intervention for all postmenopausal women whose T-score is in this range. The patient should follow a healthful lifestyle (good nutrition with adequate calcium and vitamin D, and appropriate weight-bearing exercise). Follow-Up: Consider a repeat BMD and Vertebral Fracture Assessment (VFA) exam in 2 years or sooner if medically necessary, to reassess this patient's status. Reported by: KARRIE on 10/03/2024 1:24:00 PM. Reviewed, dictated and finalized at location A.
--- OUTSIDE RECORDS SUMMARY | 2024-10-03 13:07 | XMS_ITS | Referral Summary ---
Author Organization [facility] [place] [place] [address] Address [address] [place] [address] Care Team Providers Care Reference Archivist Name Role Phone Guillermo Westbrook MD Primary Care Provider Encounters Date Type Department Care Team Description 08/05/2024 Telephone [facility] Cardiology [address] [place] [phone] Martin Green MD from Last 3 [...] TABLET EVERY MORNING 90 tablet 5 Active furosemide (LASIX) 40 mg tablet TAKE 1 TABLET EVERY MORNING 90 tablet 3 4 09/05/19 25 Discontinued clopidogreL (PLAVIX) 75 mg tablet Take 1 tablet (75 mg total) by mouth daily 90 tablet 6 4 09/05/19 25 Discontinued Active Problems Problem Noted Date Diagnosed Date Leg swelling 08/25/2021 Overview (08/25/2021): Added automatically from request for surgery [id number] Precordial pain 05/26/2021 Overview (05/26/2021): Added automatically from request for surgery [id number] MCGOWAN (dyspnea on exertion) 05/26/2021 Overview (05/26/2021): Added automatically from request for surgery [id number] Social History Tobacco Use Types Packs/Day Years [...] on file 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 CHOICE PLUS Care Teams Reference Archivist Relationship Specialty Start Date End Date Guillermo Westbrook MD PCP - General Family Medicine 03/31/21
--- OUTSIDE RECORDS SUMMARY | 2024-10-03 13:07 | XMS_ITS | Clinical Summary ---
Author Organization [facility] [address] Address [address] [place] [address] Care Team Providers Care Cataloging Assistant Name Role Phone Guillermo Westbrook MD Primary Care Provider [phone] Allergies Active Allergy Reactions Criticality Noted Date [...] (08/25/2021): Added automatically from request for surgery [id number] Precordial pain 05/26/2021 Overview (05/26/2021): Added automatically from request for surgery [id number] MCGOWAN (dyspnea on exertion) 05/26/2021 Overview (05/26/2021): Added automatically from request for surgery [id number] Encounters Date Type Department Care Team Description 08/05/[address] 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
--- OUTSIDE RECORDS SUMMARY | 2024-10-03 13:07 | XMS_ITS | Clinical Summary ---
Author Organization [facility] Address [address] [facility] [place] [address] Care Team Providers Care Cd Technician Name Role Phone Guillermo Westbrook MD Primary Care Provider [phone] Source Comments [facility],non-owned Affiliates and Associated Physician Practices is amultiple site organization consisting of ambulatory clinics and hospital sitesin [place], [place], [place] and [place]. This disclosure is being madepursuant to the Care Everywhere program and may not contain all information available regarding this patient. Last updated 18.[facility] Allergies Active Allergy Reactions Criticality Noted Date [...] fluticasone propionate (Flonase) 50 MCG/ACT nasal spray [place] 1 (one) spray to 2 (two) sprays [...] to complete this topic Insurance Care Teams Cd Technician Relationship Specialty Start Date End Date Guillermo Westbrook MD [address] [place] [address] PCP - General 11/17/21
== END 2024-10-03 12:42 | disposition home or self-care (01) ==
LOC: ANHIMG 12:42
PROVIDERS: PCP Family Medicine; Visit Provider Family Medicine
DX: M81.0 Age-related osteoporosis without current pathological fracture (principal); M85.89 Other specified disorders of bone density and structure, multiple sites; Z78.0 Asymptomatic menopausal state
CPT/HCPCS: 77080

== ENCOUNTER 2024-10-31 19:17 | Emergency (ER) | payer OTHER, SELFPAY ==
[2024-10-31 19:27] VITALS: BP 139/84; PULSE 77; RESP 16; TEMP 36.9; O2SAT 100
--- NOTE | 2024-10-31 19:52 | ED_ITS ---
HPI - Skin/Abscess/Foreign Bdy General Chief complaint: Skin/Abscess/Foreign Body Stated complaint: Rash Time Seen by Provider: 10/31/24 19:52 Source: patient Mode of arrival: ambulatory Limitations: no limitations History of Present Illness HPI narrative: 64-year-old female presents with poison destiny rash. Reports itching and burning to bilateral arms, thighs and neck area. Started after pulling weeds. Reports Similar allergic reaction to poison destiny. All systems reviewed and negative except as noted above. Related Data Home Medications ?Medication ?Instructions ?Recorded ?Confirmed ?Last Taken ?Type clopidogrel 75 mg tablet 75 mg PO DAILY 10/07/21 09/02/24 Unknown History rosuvastatin 20 mg tablet 20 mg PO DAILY 10/07/21 09/02/24 Unknown History furosemide 40 mg tablet 40 mg PO DAILY 01/08/23 09/02/24 Unknown History empagliflozin 10 mg tablet mg PO 08/20/24 09/02/24 Unknown History (Jardiance) losartan 50 mg tablet mg PO 08/20/24 09/02/24 Unknown History Allergies Allergy/AdvReac Type Severity Reaction Status Date / Time codeine AdvReac Mild Vomiting Verified 09/02/24 13:53 Review of Systems Review of Systems: CONSTITUTIONAL: Denies fever, chills, or sweats. EYES: Denies visual changes, redness, or discharge. ENT: Denies rhinorrhea, congestion, sore throat, or otalgia. CARDIOVASCULAR: Denies chest pain, palpitations, or edema. RESPIRATORY: Denies cough or dyspnea. GASTROINTESTINAL: Denies abdominal pain, nausea, vomiting, or diarrhea. GENITOURINARY: Denies dysuria or hematuria. SKIN: reports poison destiny rash with itching MUSCULOSKELETAL: Denies back pain, joint pain, or myalgia. NEUROLOGIC: Denies headache, numbness, or weakness. PSYCHIATRIC: Denies anxiety or depression. All other systems reviewed are negative, except as documented in HPI. [facility] Past Medical History Medical History BMI 34.0-34.9,adult Contact dermatitis Sinusitis BMI 33.0-33.9,adult Iliac vein stenosis, left BMI 32.0-32.9,adult BMI 31.0-31.9,adult GANGA (obstructive sleep apnea) Abnormal echocardiogram Diastolic dysfunction BMI 36.0-36.9,adult BMI 35.0-35.9,adult Family history of colon cancer in father Obesity Chronic obstructive pulmonary disease, unspecified Gastroesophageal reflux disease Sleep apnea, unspecified Surgical History Surgical History History of cardiac cath Family History Family History Father Hypertension Carcinoma of colon Family history of diabetes mellitus in first degree relative Grandparent Family history of heart disease in male family member before age 55 Diabetes mellitus Mother Mental health disorder Depression Other Family history of mental disorder Social History Social History Smoking status: Never smoker Second hand tobacco smoke exposure: Yes Alcohol intake: current Substance use: never Substance use type: does not use Do You Feel Safe in your Home?: Yes Lack of Transportation: No Lack of Food: Never True Current Housing: I Have Housing Concerned About Future Housing: No Difficulty Paying Gas/Electric Bills: No Difficulty Paying for Meds: No Currently Unemployed: No Education: High School Diploma/GED Difficulty w/ Childcare or Family Care: No Living arrangements: alone Occupation/Education: occupation 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 There is no relevant family history pertinent to the presenting complaint. Exam Narrative: GENERAL: This is a well-nourished, well-developed patient, in no apparent distress. HEAD: normocephalic, atraumatic. EYES: PERRL. Sclera clear/white. Vision is grossly intact. EARS: External ears normal NOSE: External nose normal NECK: Neck supple, non-tender without lymphadenopathy, masses or thyromegaly. CARDIOVASCULAR: Regular rate and rhythm without murmurs, gallops, or rubs. RESPIRATORY: Clear to auscultation. Breath sounds equal bilaterally. No wheezes, rales, or rhonchi. SKIN: warm, Dry, intact , good texture and turgor. erythematous vesicular, edematous rash to bilateral arms anterior aspect, bilateral upper thighs and neck NEURO: awake, alert, and oriented to person, place and time. There were no obvious focal neurologic abnormalities. EXTREMITIES: No joint tenderness, effusion, or edema noted. Course Course Level of Care: Express Care Visit Vital Signs Vital signs: Vital Signs Temperature 36.9 C 10/31/24 19:27 Pulse Rate 77 10/31/24 19:27 Respiratory Rate 16 10/31/24 19:27 Blood Pressure 139/84 10/31/24 19:27 Pulse Oximetry 100 10/31/24 19:27 Oxygen Delivery Room Air 10/31/24 19:27 Temperature 36.9 C 10/31/24 19:27 Pulse Rate 77 10/31/24 19:27 Respiratory Rate 16 10/31/24 19:27 Blood Pressure 139/84 10/31/24 19:27 Pulse Oximetry 100 10/31/24 19:27 Oxygen Delivery Room Air 10/31/24 19:27 reviewed MDM - Skin/Abscess/Foreign Bdy MDM Narrative Medical decision making narrative: will treat poison destiny rash with triamcinolone, prednisone taper. Recommend a daily antihistamine. Patient is alert, nontoxic. Differential Diagnosis Differential diagnosis: Likely urticaria, cellulitis, insect bites and contact dermatitis Discharge Plan Discharge Clinical Impression: Dermatitis due to plants, including poison destiny, sumac, and oak Patient Disposition: Home Condition: Stable Instructions: Poison Destiny (ED) Additional Instructions: Take prednisone taper as prescribed. Apply triamcinolone sparingly to affected area 2 to 3 times a day. Do not apply to face. Take a daily antihistamine such as [facility]. Follow-up with primary care physician as needed. Patient Language: Kiswahili Prescriptions: New prednisone 10 mg tablet See Rx Instructions .Route .COMPLEX Qty: 42 0RF Rx Instructions: Take 6 tablets for 2 days Take 5 tablets for 2 days Take 4 tablets for 2 days Take 3 tablets for 2 days Take 2 tablets for 2 days Take 1 tablet for 2 days triamcinolone acetonide 0.1 % cream 1 applic topical BID Qty: 30 0RF No Action furosemide 40 mg tablet 40 mg PO DAILY losartan 50 mg tablet PO Jardiance 10 mg tablet PO clopidogrel 75 mg tablet 75 mg PO DAILY rosuvastatin 20 mg tablet 20 mg PO DAILY fluticasone propionate [Flonase Allergy Relief] 50 mcg/actuation spray,suspension 2 spray NASAL DAILY PRN (Reason: Congestion) Qty: 16 2RF venlafaxine 150 mg capsule,extended release 24hr 150 mg PO DAILY Qty: 90 1RF lorazepam [Ativan] 0.5 mg tablet 0.5 mg PO TID PRN (Reason: Anxiety) Qty: 60 1RF Symbicort 160-4.5 mcg/actuation HFA aerosol inhaler See Rx Instructions .ROUTE .COMPLEX Qty: 30.6 3RF Dose Instruction: USE 2 INHALATIONS EVERY 12 HOURS Rx Instructions: USE 2 INHALATIONS EVERY 12 HOURS fexofenadine 180 mg tablet 180 mg PO DAILY Qty: 90 0RF omeprazole 20 mg capsule,delayed release(DR/EC) See Rx Instructions .ROUTE .COMPLEX Qty: 90 1RF Dose Instruction: TAKE 1 CAPSULE EVERY MORNING Rx Instructions: TAKE 1 CAPSULE EVERY MORNING albuterol sulfate 90 mcg/actuation HFA aerosol inhaler 2 inh inhalation Q4H PRN (Reason: shortness of breath or wheezing) Qty: 8.5 1RF bupropion HCl [Wellbutrin XL] 300 mg tablet extended release 24 hr 300 mg PO QAM Qty: 90 3RF docusate sodium [Colace] 100 mg capsule 100 mg PO DAILY Qty: 30 1RF alendronate [Fosamax] 70 mg tablet 70 mg PO WEEKLY Qty: 12 0RF Follow-up/Referrals: Guillermo Westbrook MD [Primary Care Provider] - Time of Disposition: 19:59
== END 2024-10-31 20:19 | disposition home or self-care (01) ==
PROVIDERS: Emergency Provider Nurse Practitioner Family; PCP Family Medicine
DX: L23.7 Allergic contact dermatitis due to plants, except food (principal); J44.9 Chronic obstructive pulmonary disease, unspecified; K21.9 Gastro-esophageal reflux disease without esophagitis; E66.9 Obesity, unspecified; Z68.30 Body mass index [BMI] 30.0-30.9, adult
CPT/HCPCS: 99213; G0463

== ENCOUNTER 2024-12-19 18:24 | Emergency (ER) | payer OTHER, SELFPAY ==
--- NOTE | ~2024-12-19 | XR_ITS ---
EXAMINATION: XR foot LT min 3V DATE: 12/19/2024 19:21 INDICATION: Second toe injury TECHNIQUE: Dorsoplantar, two oblique and lateral views of the left foot were obtained. COMPARISON: 07/14/2010 FINDINGS: Alignment is normal. No fracture. Mild polyarticular osteoarthritis most prominent at the first metatarsophalangeal joint and to lesser degree at a few of the remaining joints in the mid and forefoot. Bunion with mild hypertrophic change at the medial head of the first metatarsal. Small Achilles and plantar calcaneal spurs. Soft tissues are unremarkable. IMPRESSION: 1. Mild degenerative skeletal left foot. No acute osseous abnormality. Reviewed, dictated and finalized at location A.
[2024-12-19 19:12] VITALS: BP 115/72; PULSE 80; RESP 16; TEMP 36.6; O2SAT 100
--- NOTE | 2024-12-19 19:43 | ED.LOWEXIN ---
HPI - Extremity Injury (Lower) General Chief Complaint: Extremity Injury, Lower Stated Complaint: INJURED L 2ND TOE Source: patient Mode of arrival: ambulatory Limitations: no limitations History of Present Illness HPI Narrative: 64-year-old female presented for complaint of left foot 2nd toe redness, swelling, and pain. Onset 2 weeks. Says she scraped her toe on furniture. Was told by her PCP she would need an x-ray and antibiotics due to history of osteoporosis. Denies numbness, tingling, weakness, streaking or drainage from the site. Related Data Home Medications ?Medication ?Instructions ?Recorded ?Confirmed ?Last Taken ?Type clopidogrel 75 mg tablet 75 mg PO DAILY 10/07/21 12/19/24 Unknown History rosuvastatin 20 mg tablet 20 mg PO DAILY 10/07/21 12/19/24 Unknown History furosemide 40 mg tablet 40 mg PO DAILY 01/08/23 12/19/24 Unknown History empagliflozin 10 mg tablet 10 mg PO DAILY 08/20/24 12/19/24 Unknown History (Jardiance) losartan 50 mg tablet 50 mg PO DAILY 08/20/24 12/19/24 Unknown History Allergies Allergy/AdvReac Type Severity Reaction Status Date / Time codeine AdvReac Mild Vomiting Verified 12/19/24 19:12 Review of Systems Review of Systems: CONSTITUTIONAL: Denies body aches, fever, chills, or sweats. EYES: Denies visual changes, redness, or discharge. ENT: Denies rhinorrhea, congestion CARDIOVASCULAR: Denies chest pain, palpitations, or edema. RESPIRATORY: Denies cough or dyspnea. GASTROINTESTINAL: Denies abdominal pain, nausea, vomiting, or diarrhea. SKIN: Reports wound to the left 2nd toe MUSCULOSKELETAL: Denies back pain, joint pain, or myalgia. NEUROLOGIC: Denies headache, numbness, tingling, or weakness. [facility] Past Medical History Medical History BMI 34.0-34.9,adult Contact dermatitis Sinusitis BMI 33.0-33.9,adult Iliac vein stenosis, left BMI 32.0-32.9,adult BMI 31.0-31.9,adult GANGA (obstructive sleep apnea) Abnormal echocardiogram Diastolic dysfunction BMI 36.0-36.9,adult BMI 35.0-35.9,adult Family history of colon cancer in father Obesity Chronic obstructive pulmonary disease, unspecified Gastroesophageal reflux disease Sleep apnea, unspecified Surgical History Surgical History History of cardiac cath Family History Family History Father Hypertension Carcinoma of colon Family history of diabetes mellitus in first degree relative Grandparent Family history of heart disease in male family member before age 55 Diabetes mellitus Mother Mental health disorder Depression Other Family history of mental disorder Social History Social History Smoking status: Never smoker Second hand tobacco smoke exposure: Yes Alcohol intake: current Substance use: never Substance use type: does not use Do You Feel Safe in your Home?: Yes Lack of Transportation: No Lack of Food: Never True Current Housing: I Have Housing Concerned About Future Housing: No Difficulty Paying Gas/Electric Bills: No Difficulty Paying for Meds: No Currently Unemployed: No Education: High School Diploma/GED Difficulty w/ Childcare or Family Care: No Living arrangements: alone Occupation/Education: occupation 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 Please see nursing chart for further information. There is no relevant family history pertinent to the presenting complaint Exam Narrative: GENERAL: Well-appearing HEAD: Normocephalic, atraumatic. EYES: conjunctivae clear, and EOMI. ENT: Mucous membranes moist. Oropharynx without edema, erythema or lesions. NECK: Supple. No lymphadenopathy CHEST: Clear to auscultation. HEART: Regular rate and rhythm. SKIN: Warm, dry. Right 2nd toe IP joint with less than 0.5 cm dried abrasion at center with surrounding erythema, tender. No drainage. CMS intact NEURO: Alert and oriented x3. Course Course Emergency Course: Patient is aware of diagnosis, understands and agrees to treatment plan. Anticipatory guidance given. Patient agrees to follow-up as directed and is aware of reasons to seek care at the emergency department. Portions of this record may have been created with voice recognition software Level of Care: Express Care Visit Vital Signs Vital signs: Vital Signs Temperature 97.8 F 12/19/24 19:12 Pulse Rate 80 12/19/24 19:12 Respiratory Rate 16 12/19/24 19:12 Blood Pressure 115/72 12/19/24 19:12 Pulse Oximetry 100 12/19/24 19:12 Temperature 97.8 F 12/19/24 19:12 Pulse Rate 80 12/19/24 19:12 Respiratory Rate 16 12/19/24 19:12 Blood Pressure 115/72 12/19/24 19:12 Pulse Oximetry 100 12/19/24 19:12 Reviewed MDM - Extremity Injury (Lower) MDM Narrative Medical decision making narrative: Discussed physical exam findings and x-ray. Will send antibiotic for mild cellulitis over the 2nd toe. Advised supportive measures and signs/symptoms to go to the ER. Pt is appropriate for outpt treatment and f/u. Differential Diagnosis Differential diagnosis: Likely other (Cellulitis, bruising, avulsion, contusion, fracture, dislocation) Imaging Data Radiologist's impression: Patient: Pham Schreiber : 1960 MR#: [id number] Age: 64 Acct:[id number] [facility] ADM Date: 12/19/24Attending Dr: Ordering Physician: Yancy Arevalo APRN Date of Service: 12/19/24 Procedure(s): XR foot LT min 3V Accession Number(s): [id number] cc: Yancy Arevalo APRN; Guillermo Westbrook MD~ EXAMINATION: XR foot LT min 3V DATE: 12/19/2024 19:21 INDICATION: Second toe injury TECHNIQUE: Dorsoplantar, two oblique and lateral views of the left foot were obtained. COMPARISON: 07/14/2010 FINDINGS: Alignment is normal. No fracture. Mild polyarticular osteoarthritis most prominent at the first metatarsophalangeal joint and to lesser degree at a few of the remaining joints in the mid and forefoot. Bunion with mild hypertrophic change at the medial head of the first metatarsal. Small Achilles and plantar calcaneal spurs. Soft tissues are unremarkable. IMPRESSION: 1. Mild degenerative skeletal left foot. No acute osseous abnormality. Discharge Plan Discharge Clinical Impression: Cellulitis Patient Disposition: Home Condition: Stable Instructions: Antibiotic Form, Cellulitis (ED) Additional Instructions: Keep the area clean and dry - cleanse with warm water and mild soap and allow to fully dry. Ok to apply neosporin to the site Keep it open to air (no bandages unless the site is draining) You can apply mole skin if you are wearing shoes that will cause for chin to the site Watch for worsening symptoms including pain, redness, swelling, streaking, pus/drainage, fever. Go to the ER with any of these symptoms or concerns. Follow up with primary care provider Patient Language: Latvian Prescriptions: New cephalexin 500 mg capsule 500 mg PO Q6H 5 Days Qty: 20 0RF No Action furosemide 40 mg tablet 40 mg PO DAILY losartan 50 mg tablet 50 mg PO DAILY Jardiance 10 mg tablet 10 mg PO DAILY clopidogrel 75 mg tablet 75 mg PO DAILY rosuvastatin 20 mg tablet 20 mg PO DAILY fluticasone propionate [Flonase Allergy Relief] 50 mcg/actuation spray,suspension 2 spray NASAL DAILY PRN (Reason: Congestion) Qty: 16 2RF venlafaxine 150 mg capsule,extended release 24hr 150 mg PO DAILY Qty: 90 1RF lorazepam [Ativan] 0.5 mg tablet 0.5 mg PO TID PRN (Reason: Anxiety) Qty: 60 1RF Symbicort 160-4.5 mcg/actuation HFA aerosol inhaler See Rx Instructions .ROUTE .COMPLEX Qty: 30.6 3RF Dose Instruction: USE 2 INHALATIONS EVERY 12 HOURS Rx Instructions: USE 2 INHALATIONS EVERY 12 HOURS fexofenadine 180 mg tablet 180 mg PO DAILY Qty: 90 0RF albuterol sulfate 90 mcg/actuation HFA aerosol inhaler 2 inh inhalation Q4H PRN (Reason: shortness of breath or wheezing) Qty: 8.5 1RF bupropion HCl [Wellbutrin XL] 300 mg tablet extended release 24 hr 300 mg PO QAM Qty: 90 3RF docusate sodium [Colace] 100 mg capsule 100 mg PO DAILY Qty: 30 1RF omeprazole 20 mg capsule,delayed release(DR/EC) See Rx Instructions .ROUTE .COMPLEX Qty: 90 1RF Dose Instruction: TAKE 1 CAPSULE EVERY MORNING Rx Instructions: TAKE 1 CAPSULE EVERY MORNING alendronate [Fosamax] 70 mg tablet 70 mg PO WEEKLY Qty: 12 0RF Follow-up/Referrals: Guillermo Westbrook MD [Primary Care Provider, [facility]]
== END 2024-12-19 19:52 | disposition home or self-care (01) ==
PROVIDERS: Emergency Provider Nurse Practitioner Family; PCP Family Medicine
DX: L03.032 Cellulitis of left toe (principal); J44.9 Chronic obstructive pulmonary disease, unspecified; K21.9 Gastro-esophageal reflux disease without esophagitis; E66.9 Obesity, unspecified; Z68.29 Body mass index [BMI] 29.0-29.9, adult
CPT/HCPCS: 73630; 99213; G0463

== ENCOUNTER 2025-03-05 00:03 | Day surgery (SDC) | payer OTHER, SELFPAY ==
--- NOTE | 2025-02-26 09:46 | PC.NURSE ---
Pt unable to complete interview when called, but was informed to stop clopidogrel prior to her procedure with the last dose being on 02/28/25. Pt stated understanding and will be available at 4:15 today for an interview.
[2025-03-03 14:29] VITALS: BMI 30.5
--- OUTSIDE RECORDS SUMMARY | 2025-03-05 00:06 | XMS_ITS | Clinical Summary ---
Author Organization [facility] [place] [address] Address [address] [place] [address] Care Team Providers Care Cyber Engineer Name Role Phone Guillermo Westbrook MD Primary Care Provider [phone] Allergies Active Allergy Reactions Criticality Noted Date [...] mg 24 hr tablet 05/28/19 24 Active fexofenadine (AARON) 180 mg tablet 10/09/19 24 Active venlafaxine XR (EFFEXOR-XR) 150 mg 24 hr capsule 08/23/19 24 Active rosuvastatin (CRESTOR) 20 mg tablet Take 1 tablet (20 mg total) by mouth nightly 7 tablet 08/06/19 25 Active furosemide (LASIX) 40 mg tablet TAKE 1 TABLET EVERY MORNING 90 tablet 3 12/04/19 25 Active clopidogreL (PLAVIX) 75 mg tablet TAKE 1 TABLET DAILY 90 tablet 3 12/04/19 25 Active alendronate (FOSAMAX) 70 mg tablet Take 1 tablet (70 mg total) by mouth 12/19/19 25 Active terbinafine (LamiSIL) 250 mg tablet Take 1 tablet (250 mg total) by mouth daily 01/11/20 25 Active triamcinolone (KENALOG) 0.1 % cream APPLY 1 APPLICATION TOPICALLY TWICE A DAY FOR POISON BLAYNE 11/01/19 25 Active losartan (COZAAR) 50 mg tablet Take 1 tablet (50 mg total) by mouth daily 90 tablet 3 01/30/20 25 Active Jardiance 10 mg tablet TAKE 1 TABLET DAILY 90 tablet 3 03/03/20 25 Active empagliflozin (Jardiance) 10 mg tablet TAKE 1 TABLET DAILY 90 tablet 1 09/02/19 25 025 Discontinued Active Problems Problem Noted Date Diagnosed Date Leg swelling 08/25/2021 Overview (08/25/2021): Added automatically from request for surgery [id number] Precordial pain 05/26/2021 Overview (05/26/2021): Added automatically from request for surgery [id number] MCGOWAN (dyspnea on exertion) 05/26/2021 Overview (05/26/2021): Added automatically from request for surgery [id number] Encounters Date Type Department Care Team Description 01/28/2025 2:03 PM CDT - 01/28/2025 11:59 PM CDT Hospital Encounter [facility] [address] [place] [address] Vein compression; Left leg pain Discharge Disposition: Discharge to home or self care 01/28/2025 Results Follow-Up [facility] Cardiology [address] [facility] [address] [place] [phone] Martin Green MD US VEIN DUPLEX LOWER EXTREMITY LEFT LIMITED, UNILATERAL 01/21/2025 2:45 PM CDT Office Visit [facility] Cardiology [address] [facility] [address] [place] [phone] Martin Green MD Chronic diastolic congestive heart failure (HCC) (Primary Dx); Vein compression; Status post angioplasty with stent; Essential hypertension; Left leg pain; GANGA on CPAP; Lipid screening from Last 3 Months Surgical History Surgery Date Site/Laterality Comments CHOLECYSTECTOMY HERNIA REPAIR UMBILICAL HERNIA REPAIR CYST REMOVAL from upper back x1 BLADDER SUSPENSION N/A Medical History Medical History Date Comments Sleep apnea COPD (chronic obstructive pulmonary disease) Hypertension GERD (gastroesophageal reflux disease) PONV (postoperative [...] on file Legal Sex Female 1:39 PM EARLY MORNING Gender Identity Not on file Sexual Orientation Not on file Last Filed Vital Signs Vital Sign Reading Time Taken Comments Blood Pressure 108/66 01/21/2025 2:42 PM CDT Pulse 75 01/21/2025 2:42 PM CDT Temperature 37.1 C (98.8 F) 09/17/2021 9:16 AM CDT Respiratory Rate 16 01/21/2025 2:42 PM CDT Oxygen Saturation 96% 01/21/2025 2:42 PM CDT Inhaled Oxygen Concentration - - Weight 89.4 kg (197 lb) 01/21/2025 2:42 PM CDT Height 170.2 cm (5' 7) 01/21/2025 2:42 PM CDT Body Mass Index 30.85 01/21/2025 2:42 PM CDT Plan of Treatment Health Maintenance [...] 2) 2012 Covid-19 Vaccine (3 - season) 2024, 12/18/2020 Influenza Vaccine (#1) 2024 Medical Devices Implanted Type Area Electrical Equipment Technician Device Identifier Shelf Expiration Date Model / Serial / Lot [employer] Stent Venous Wall [id number] - [id number] Implanted:Qty: 1 on 09/17/2021 by Martin Green MD at [facility] [employer] 08/11/2022 [id number] / / [id number] Procedures Procedure Name Priority Date/Time Associated Diagnosis Comments US VEIN DUPLEX LOWER EXTREMITY LEFT LIMITED Schedule Routine, Read Routine (OP Routine) 01/28/2025 2:43 PM CDT Vein compression Left leg pain POCT LIPID PANEL Routine 01/21/2025 2:45 PM CDT Lipid screening from Last 3 Months Results * US VEIN DUPLEX LOWER EXTREMITY LEFT LIMITED, UNILATERAL (01/28/2025 2:43 PM CDT) Anatomical Region Laterality Modality Vascular Left Ultrasound 01/28/2025 2:56 PM CDT Impressions 01/28/2025 2:56 PM CDT There is no evidence of acute DVT in the left lower extremity. Electronically signed by: Rosa Marcus M.D. Narrative 01/28/2025 2:56 PM CDT EXAMINATION: US VEIN DUPLEX LOWER EXTREMITY LEFT LIMITED, UNILATERAL HISTORY: The patient is a 64-year-old female who presents with left leg pain. TECHNIQUE: Left lower extremity venous duplex study was performed with redding scale imaging, color Doppler imaging and spectral waveform analysis. FINDINGS: There is normal compressibility and phasicity in both common femoral veins as well as the left deep femoral, femoral, popliteal, posterior tibial and peroneal veins and the left saphenofemoral junction. Imaging of these veins reveals no thrombus or reflux. Procedure Note Rosa Marcus MD - 01/28/2025 EXAMINATION: US VEIN DUPLEX LOWER EXTREMITY LEFT LIMITED, UNILATERAL HISTORY: The patient is a 64-year-old female who presents with left leg pain. TECHNIQUE: Left lower extremity venous duplex study was performed with redding scale imaging, color Doppler imaging and spectral waveform analysis. FINDINGS: There is normal compressibility and phasicity in both common femoral veins as well as the left deep femoral, femoral, popliteal, posterior tibial and peroneal veins and the left saphenofemoral junction. Imaging of these veins reveals no thrombus or reflux. IMPRESSION: There is no evidence of acute DVT in the left lower extremity. Electronically signed by: Rosa Marcus M.D. Martin Green MD IMG US PROCEDURES Final Result * POCT lipid panel (01/21/2025 2:45 PM CDT) [facility] Signature Cholesterol, POC 152 <200 MG/DL HDL, POC 66 >=40 mg/dL Triglycerides, POC 147 <=149 mg/dL LDL Cholesterol POC 57 <=129 mg/dL Chol/HDL Ratio, POC 2.3 NONE Non-HDL Cholesterol, POC 86 NONE mg/dL Cholesterol Total, POC 152 30 - 199 mg/dL Capillary blood 01/21/2025 2 :45 PM CDT Martin Green MD POINT OF CARE TEST ORDERABLES Fi nal Result from Last 3 Months Insurance CHOICE PLUS Care Teams Cyber Engineer Relationship Specialty Start Date End Date Guillermo Westbrook MD PCP - General Family Medicine 03/31/21
--- OUTSIDE RECORDS SUMMARY | 2025-03-05 00:06 | XMS_ITS | Clinical Summary ---
Author Organization [facility] Address [address] [facility] [place] [address] Care Team Providers Care Touch Up Worker Name Role Phone Guillermo Westbrook MD Primary Care Provider [phone] Source Comments [facility],non-owned Affiliates and Associated Physician Practices is amultiple site organization consisting of ambulatory clinics and hospital sitesin [place], [place] and [place]. This disclosure is being madepursuant to the Care Everywhere program and may not contain all information available regarding this patient. Last updated 18.[facility] Allergies Active Allergy Reactions Criticality Noted Date [...] fluticasone propionate (Flonase) 50 MCG/ACT nasal spray [place] 1 (one) spray to 2 (two) sprays [...] - COLON CA SCREENING 1960 MAMMOGRAM 1960 HIV SCREENING 1977 HEPATITIS C SCREENING 04/28/1980 DTAP/TDAP/TD VACCINES (1 - Tdap) 1981 PAP SMEAR 1983 PNEUMOCOCCAL VACCINE 50+ (1 of 1 - PCV) 2012 ZOSTER VACCINE (1 of 2) 2012 DEPRESSION SCREENING 04/24/2024 05/23/2022 COVID-19 VACCINE (1 - 2023-2 5 season) 2024 INFLUENZA VACCINE (#1) 2024 Respiratory Syncytial Virus (RSV) Vaccine Pt: [...] to complete this topic Insurance Care Teams Touch Up Worker Relationship Specialty Start Date End Date Guillermo Westbrook MD [address] [place] [address] PCP - General 11/17/21
--- OUTSIDE RECORDS SUMMARY | 2025-03-05 00:06 | XMS_ITS | Patient Health Record ---
Author Organization [facility] [employer] [facility] Address [address] [place] [address] Care Team Providers Care Drawing Checker Name Role Phone Kameron Leyva Unavailable [phone] Reason For Referral No Information Medications Medication SIG (Take, Route, Frequency, Duration) Notes Start Date End Date Status LORazepam 0.5 MG Tablet Oral Active Carvedilol 6.25 MG Tablet Oral Active Clopidogrel Bisulfate 75 MG Tablet Oral Active ProAir HFA 108 (90 Base) MCG/ACT Aerosol Solution Inhalation Active Rosuvastatin Calcium 20 MG Tablet Oral Active Flonase Allergy Relief 50 MCG/ACT Suspension Nasal Active Furosemide 20 MG Tablet Oral Active Naproxen 500 MG Tablet Oral Active Venlafaxine HCl 75 MG Tablet Oral Active Omeprazole 20 MG Capsule Delayed Release Oral Active Nitroglycerin 0.4 MG Tablet Sublingual Sublingual Active BUDESONIDE-FORMOTEROL HFA 160 MCG-4.5 MCG/ACTUATION AEROSOL INHALER *Reorder from [facility] for eRx and Interaction Alerts* Active Social History Social History Additional Details Category Social Info Options Details Migrated Social History Migrated Social History Alcohol Intake: 01/07/2022,Tobacco Years: Never smoker 01/07/2022 Plan Of Treatment No Information Insurance Providers Payer Name Payer Address Payer Phone Subscriber Number Group Number Insured Name Patient Relationship to Insured Coverage Start Date Coverage End Date [facility] [address] [place] [address] [id number] DOMINGO WALKER Self - patient is the insured
--- OUTSIDE RECORDS SUMMARY | 2025-03-05 00:06 | XMS_ITS | Encounter Summary ---
Author Organization [facility] Address [address] [place] [address] Care Team Providers Care Emotional Support Teacher Name Role Phone Guillermo Westbrook MD Primary Care Provider [phone] Encounter Details Date Type Department Care Team (Late st Contact Info) Description 01/28/2025 Results Follow-Up [facility] Cardiology [address] [place] [phone] Martin Green MD [address] [facility] [address] [facility] [place] [address] US VEIN DUPLEX LOWER EXTREMITY LEFT LIMITED, UNILATERAL Social History Tobacco Use Types Packs/Day Years Used Date Smoking Tobacco: Never Smokeless Tobacco: Never AUDIT-C Answer Date Recorded Q1: How often do you have a drink containing alc ohol? Never 09/17/2021 Average Number of Drinks Not on file 022 Q3: How often do you have si x or more drinks on one occasion? Never 09/17/2021 Comments Unknown Sex and Gender Information Value Date Recorded Sex Assigned at Not on file Legal Sex Female 1:39 PM BOOK REVIEWER Gender Identity Not on file Sexual Orientation Not on file documented as of this encounter Plan of Treatment Not on file documented as of this encounter Visit Diagnoses Not on filedocumented in this encounter Care Teams Emotional Support Teacher Relationship Specialty Start Date End Date Guillermo Westbrook MD PCP - General Family Medicine 03/31/21 documented as of this encounter
[2025-03-05 09:57] VITALS: BP 135/74; PULSE 81; RESP 16; TEMP 36.6; O2SAT 100; BMI 30.7
[2025-03-05] MEDS: LACTATED RINGERS 1,000 ML 150 ML IV CONT (10:19)
--- NOTE | 2025-03-05 10:19 | WPDANESEPPF ---
Anes - Initial Pre Proc Eval Procedure: Operation Date: 03/05/25 10:00 Proposed Procedures p Screening Colonoscopy - Lonnie Rg MD Date/Time: 03/05/25 10:19 Surgeon: Lonnie Rg MD Pre Op Diagnosis: Family history of malignant neoplasm of digestive Patient Data Age: 64 Gender: F Height: 1.7 m Weight: 88.8 kg Last Vital Signs Temp 36.6 C 03/05/25 09:57 Pulse 81 03/05/25 09:57 Resp 16 03/05/25 09:57 BP 135/74 03/05/25 09:57 Pulse Ox 100 03/05/25 09:57 O2 Del Method Room Air 03/05/25 09:57 Allergies Allergy/AdvReac Type Severity Reaction Status Date / Time codeine AdvReac Mild Vomiting Verified 03/05/25 10:05 Home Medications ?Medication ?Instructions ?Recorded ?Confirmed ?Type budesonide-formoterol HFA 160 See Rx Instructions .Route 12/28/20 03/05/25 Rx mcg-4.5 mcg/actuation aerosol .COMPLEX #30.6 grams inhaler (Symbicort) clopidogrel 75 mg tablet 75 mg PO DAILY 10/07/21 03/05/25 History rosuvastatin 20 mg tablet 20 mg PO DAILY 10/07/21 03/05/25 History fluticasone propionate 50 2 spray intranasal DAILY PRN 10/10/22 03/03/25 Rx mcg/actuation nasal Congestion #16 grams spray,suspension (Flonase Allergy Relief) furosemide 40 mg tablet 40 mg PO DAILY 01/08/23 03/05/25 History fexofenadine 180 mg tablet 180 mg PO DAILY #90 tabs 01/08/24 03/05/25 Rx lorazepam 0.5 mg tablet (Ativan) 0.5 mg PO TID PRN Anxiety #60 tabs 08/15/24 03/03/25 Rx empagliflozin 10 mg tablet 10 mg PO DAILY 08/20/24 03/05/25 History (Jardiance) losartan 50 mg tablet 50 mg PO DAILY 08/20/24 03/05/25 History albuterol sulfate 90 mcg/actuation 2 inh inhalation Q4H PRN shortness 08/25/24 03/03/25 Rx aerosol inhaler of breath or wheezing #8.5 grams bupropion HCl 300 mg 24 hr tablet, 300 mg PO QAM #90 tabs 09/25/24 03/05/25 Rx extended release (Wellbutrin XL) docusate sodium 100 mg capsule 100 mg PO DAILY #30 caps 09/28/24 03/05/25 Rx (Colace) omeprazole 20 mg capsule,delayed See Rx Instructions .Route 11/13/24 03/05/25 Rx release .COMPLEX #90 caps venlafaxine 150 mg 150 mg PO DAILY #90 caps 02/11/25 03/05/25 Rx capsule,extended release 24 hr calcium 600 mg (as 1 cap PO DAILY 03/03/25 03/05/25 History carbonate)-vitamin D3 5 mcg (200 unit) capsule (Calcium 600 + D(3)) cholecalciferol (vitamin D3) 25 25 mcg PO DAILY 03/03/25 03/05/25 History mcg (1,000 unit) capsule (Vitamin D3) alendronate 70 mg tablet (Fosamax) 70 mg PO WEEKLY #12 tabs 03/04/25 03/05/25 Rx Patient hx anesthesia problems: none Family hx anesthesia problems: none Results Review: All pre-operative results and documents have been reviewed as part of the pre-operative evaluation. [facility] Past Medical History Medical History BMI 34.0-34.9,adult Contact dermatitis Sinusitis BMI 33.0-33.9,adult Iliac vein stenosis, left BMI 32.0-32.9,adult BMI 31.0-31.9,adult GANGA (obstructive sleep apnea) Abnormal echocardiogram Diastolic dysfunction BMI 36.0-36.9,adult BMI 35.0-35.9,adult Family history of colon cancer in father Obesity Chronic obstructive pulmonary disease, unspecified Gastroesophageal reflux disease Sleep apnea, unspecified Surgical History Surgical History History of cardiac cath Family History Family History Father Hypertension Carcinoma of colon Family history of diabetes mellitus in first degree relative Grandparent Family history of heart disease in male family member before age 55 Diabetes mellitus Mother Mental health disorder Depression Other Family history of mental disorder Social History Social History Smoking status: Never smoker Second hand tobacco smoke exposure: Yes Alcohol intake: current Substance use: never Substance use type: does not use Do You Feel Safe in your Home?: Yes Lack of Transportation: No Lack of Food: Never True Current Housing: I Have Housing Concerned About Future Housing: No Difficulty Paying Gas/Electric Bills: No Difficulty Paying for Meds: No Currently Unemployed: No Education: High School Diploma/GED Difficulty w/ Childcare or Family Care: No Living arrangements: alone Occupation/Education: occupation 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 Informed Consent: The patient's anesthetic plan and its attendant risks and benefits were discussed with the patient/family/POA. Questions were solicited and answers provided to the satisfaction of the patient/family/POA.
--- NOTE | 2025-03-05 10:38 | PM.HPGS ---
History of Present Illness History of Present Illness Consent: Risks, benefits, and alternatives have been discussed and questions answered. Patient agrees to proceed with procedure. Chief complaint: Family history of malignant neoplasm of digestive Narrative: Pham Schreiber is a 64 year old female with last colonoscopy 5 years ago, father had colon cancer Review of Systems Review of Systems: All systems reviewed & are unremarkable except as noted in HPI and below PMFSH Past Medical History Medical History BMI 34.0-34.9,adult Contact dermatitis Sinusitis BMI 33.0-33.9,adult Iliac vein stenosis, left BMI 32.0-32.9,adult BMI 31.0-31.9,adult GANGA (obstructive sleep apnea) Abnormal echocardiogram Diastolic dysfunction BMI 36.0-36.9,adult BMI 35.0-35.9,adult Family history of colon cancer in father Obesity Chronic obstructive pulmonary disease, unspecified Gastroesophageal reflux disease Sleep apnea, unspecified Surgical History Surgical History History of cardiac cath Family History Family History Father Hypertension Carcinoma of colon Family history of diabetes mellitus in first degree relative Grandparent Family history of heart disease in male family member before age 55 Diabetes mellitus Mother Mental health disorder Depression Other Family history of mental disorder Social History Social History Smoking status: Never smoker Second hand tobacco smoke exposure: Yes Alcohol intake: current Substance use: never Substance use type: does not use Do You Feel Safe in your Home?: Yes Lack of Transportation: No Lack of Food: Never True Current Housing: I Have Housing Concerned About Future Housing: No Difficulty Paying Gas/Electric Bills: No Difficulty Paying for Meds: No Currently Unemployed: No Education: High School Diploma/GED Difficulty w/ Childcare or Family Care: No Living arrangements: alone Occupation/Education: occupation 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[employer] Gender identity (if verbalized by the patient): Female Meds Home Medications and Allergies Home Medications ?Medication ?Instructions ?Recorded ?Confirmed ?Type budesonide-formoterol HFA 160 See Rx Instructions .Route 12/28/20 03/05/25 Rx mcg-4.5 mcg/actuation aerosol .COMPLEX #30.6 grams inhaler (Symbicort) clopidogrel 75 mg tablet 75 mg PO DAILY 10/07/21 03/05/25 History rosuvastatin 20 mg tablet 20 mg PO DAILY 10/07/21 03/05/25 History fluticasone propionate 50 2 spray intranasal DAILY PRN 10/10/22 03/03/25 Rx mcg/actuation nasal Congestion #16 grams spray,suspension (Flonase Allergy Relief) furosemide 40 mg tablet 40 mg PO DAILY 01/08/23 03/05/25 History fexofenadine 180 mg tablet 180 mg PO DAILY #90 tabs 01/08/24 03/05/25 Rx lorazepam 0.5 mg tablet (Ativan) 0.5 mg PO TID PRN Anxiety #60 tabs 08/15/24 03/03/25 Rx empagliflozin 10 mg tablet 10 mg PO DAILY 08/20/24 03/05/25 History (Jardiance) losartan 50 mg tablet 50 mg PO DAILY 08/20/24 03/05/25 History albuterol sulfate 90 mcg/actuation 2 inh inhalation Q4H PRN shortness 08/25/24 03/03/25 Rx aerosol inhaler of breath or wheezing #8.5 grams bupropion HCl 300 mg 24 hr tablet, 300 mg PO QAM #90 tabs 09/25/24 03/05/25 Rx extended release (Wellbutrin XL) docusate sodium 100 mg capsule 100 mg PO DAILY #30 caps 09/28/24 03/05/25 Rx (Colace) omeprazole 20 mg capsule,delayed See Rx Instructions .Route 11/13/24 03/05/25 Rx release .COMPLEX #90 caps venlafaxine 150 mg 150 mg PO DAILY #90 caps 02/11/25 03/05/25 Rx capsule,extended release 24 hr calcium 600 mg (as 1 cap PO DAILY 03/03/25 03/05/25 History carbonate)-vitamin D3 5 mcg (200 unit) capsule (Calcium 600 + D(3)) cholecalciferol (vitamin D3) 25 25 mcg PO DAILY 03/03/25 03/05/25 History mcg (1,000 unit) capsule (Vitamin D3) alendronate 70 mg tablet (Fosamax) 70 mg PO WEEKLY #12 tabs 03/04/25 03/05/25 Rx Allergies Allergy/AdvReac Type Severity Reaction Status Date / Time codeine AdvReac Mild Vomiting Verified 03/05/25 10:05 Vital Signs Vital Signs - 24 hr 03/05/25 09:57 Temperature 97.8 F Pulse Rate 81 Respiratory Rate 16 Blood Pressure 135/74 Pulse Oximetry 100 Oxygen Delivery Room Air Exam Const: General: comfortable and no acute distress HENMT: Face/Nose/Sinus: Normal nares present Eyes: General: appearance normal, both eyes and all related structures Neck: Neck: no JVD Resp: Auscultation: clear to auscultation bilaterally Cardio: Rate: regular rate Rhythm: regular rhythm GI: Inspection: non-distended GI Palp: Yes Soft to palpation Skin: General skin exam: normal color Extrem: General: normal to inspection Psych: Mental Status: mental status grossly normal Assessment and Plan Assessment and plan (1) Family history of colon cancer in father: Code(s): Z80.0 - Family history of malignant neoplasm of digestive organs Status: Acute Assessment and Plan: colonoscopy
--- NOTE | 2025-03-05 10:51 | S_PTH ---
PATIENT: Pham Schreiber LOC: [facility] [place]#:[id number] AGE/SX: 64/F ROOM: RE03/05/[address]: Lonnie Rg MD : 1960 BED: DIS: 03/05/2025 SPEC #: [id number] RECD: 03/05/25 13:19 STATUS: SYED REStarr #: [id number] KAUSHAL: 03/05/25 10:[address]: Lonnie Rg DEPT: [facility] Surgical RECD BY: Ramona Beard ENTERED: 03/05/25 13:19 SP TYPE: Surgical OTHR DR: Guillermo Westbrook MD Tissues: A - Colon Polypectomy Procedures: Hematoxylin and Eosin Stain Gross and Microscopic Level 4
[2025-03-05 10:57] VITALS: BP 126/73; PULSE 72; RESP 20; O2SAT 99
[2025-03-05 11:07] VITALS: BP 127/78; PULSE 67; RESP 14; O2SAT 100
[2025-03-05 11:17] VITALS: BP 130/75; PULSE 69; RESP 14; O2SAT 100
== END 2025-03-05 11:29 | disposition home or self-care (01) ==
PROVIDERS: PCP Family Medicine; Visit Provider Internal Medicine Gastroenterology
PROC: 0DJD8ZZ Inspection of Lower Intestinal Tract, Via Natural or Artificial Opening Endoscopic (ICD-10-PCS; CPT 45378; principal; 2025-03-05 10:00)
DX: Z12.11 Encounter for screening for malignant neoplasm of colon (principal); D12.3 Benign neoplasm of transverse colon; Z80.0 Family history of malignant neoplasm of digestive organs; E66.9 Obesity, unspecified; Z68.30 Body mass index [BMI] 30.0-30.9, adult
CPT/HCPCS: 45385; 88305; J2003; J2704; J7120

== ENCOUNTER 2025-04-21 15:35 | Outpatient (CLI) | payer OTHER, SELFPAY ==
--- OUTSIDE RECORDS SUMMARY | 2025-04-21 15:40 | XMS_ITS | Clinical Summary ---
Author Organization [facility] [employer] Address [address] [place] [address] Care Team Providers Care Dry Cans Operator Name Role Phone Guillermo Westbrook MD Primary Care Provider [phone] Source Comments [facility] [employer],non-owned Affiliates and Associated Physician Practices is amultiple site organization consisting of ambulatory clinics and hospital sitesin [place], [place], [place] and [place]. This disclosure is being madepursuant to the Care Everywhere program and may not contain all information available regarding this patient. Last updated 18.[facility] [employer] Allergies Active Allergy Reactions Criticality Noted Date [...] fluticasone propionate (Flonase) 50 MCG/ACT nasal spray [place] 1 (one) spray to 2 (two) sprays [...] SCREENING 04/24/2024 05/23/2022 COVID-19 VACCINE (1 - 2024-2 6 season) 2024 INFLUENZA VACCINE (#1) 2024 Respiratory [...] patient's age to complete this topic Insurance Member Subscriber Plan / Payer (Ef fective 2022-Present) Name:Pham Walker Relation to Subscriber:Self Name:PHAM WALKER Payer ID:[id number] ([facility]) Type:O Address: [address] [address] SELF PAY NO INSURANCE Member Subscriber Plan / Payer (Ef fective for All Dates) Name:Pham Walker Member ID:Not on file Relation to Subscriber:Not on file Name:DENISE,PHAM Sullivan Subscriber ID:Not on file Address: [address] [place] [id number] Payer ID:Not on file Group ID:Not on file Type:Self Pay Address: [facility] Member Subscriber Plan / Payer (Ef fective for All Dates) Name:DenisePham roberto Relation to Subscriber:Self Name:Pham Walker Payer ID:[id number] ([employer]) Type:HMO Address: [address] [address] Care Teams Dry Cans Operator Relationship Specialty Start Date End Date Guillermo Westbrook MD [address] [place] [id number] PCP - General 11/17/21
--- OUTSIDE RECORDS SUMMARY | 2025-04-21 15:40 | XMS_ITS | Clinical Summary ---
Author Organization [employer] [facility] Address [address] [place] [address] Care Team Providers Care Production Troubleshooter Name Role Phone No, Pcp CABLE ARMORER Primary Care Provider Unavailabl e Medications No known medications Social History Tobacco Use Types Packs/Day Years Used Date Smoking Tobacco: Never Assessed Comments Unknown Sex and Gender Information Value Date Recorded Sex Assigned at Not on file Legal Sex Female 4:41 PM EST Gender Identity Not on file Sexual Orientation Not on file Plan of Treatment Not on file Medical Devices Not on file Care Teams Production Troubleshooter Relationship Specialty Start Date End Date No, Pcp, CABLE ARMORER N/A Do not use PCP - General Family Medicine 03/27/20
--- OUTSIDE RECORDS SUMMARY | 2025-04-21 15:40 | XMS_ITS | Clinical Summary ---
Author Organization [facility] [address] Address [address] [place] [address] Care Team Providers Care Derrick Worker Well Service Name Role Phone Guillermo Westbrook MD Primary Care Provider [phone] Allergies Active Allergy Reactions Criticality Noted Date [...] 150 mg 24 hr capsule 4 Active rosuvastatin (CRESTOR) 20 mg tablet Take 1 tablet (20 mg total) by mouth nightly 7 tablet 5 Active furosemide (LASIX) 40 mg tablet TAKE 1 TABLET EVERY MORNING 90 tablet 3 5 Active clopidogreL (PLAVIX) 75 mg tablet TAKE 1 TABLET DAILY 90 tablet 3 5 Active alendronate (FOSAMAX) 70 mg tablet Take 1 tablet (70 mg total) by mouth 5 Active terbinafine (LamiSIL) 250 mg tablet Take 1 tablet (250 mg total) by mouth daily 5 Active triamcinolone (KENALOG) 0.1 % cream APPLY 1 APPLICATION TOPICALLY TWICE A DAY FOR POISON BLAYNE 5 Active losartan (COZAAR) 50 mg tablet Take 1 tablet (50 mg total) by mouth daily 90 tablet 3 5 Active Jardiance 10 mg tablet TAKE 1 TABLET DAILY 90 tablet 3 5 Active Active Problems Problem Noted Date Diagnosed Date Leg swelling 08/25/2021 Overview (08/25/2021): Added automatically from request for surgery [id number] Precordial pain 05/26/2021 Overview (05/26/2021): Added automatically from request for surgery [id number] MCGOWAN (dyspnea on exertion) 05/26/2021 Overview (05/26/2021): Added automatically from request for surgery [id number] Encounters Date Type Department Care Team Description 01/28/2025 2:03 PM CDT - 01/28/2025 11:59 PM CDT Hospital Encounter [facility] [address] [place] [address] Vein compression; Left leg pain Discharge Disposition: Discharge to home or self care 01/28/2025 Results Follow-Up [facility] Cardiology [address] [facility] [address] [place] [address] [place] [phone] Martin Green MD US VEIN DUPLEX LOWER EXTREMITY LEFT LIMITED, UNILATERAL 01/21/2025 2:45 PM CDT Office Visit [facility] Cardiology [id number] [place] [address] Martin Green MD Chronic diastolic congestive [...] on file Legal Sex Female 1:39 PM LATEX CASTER Gender Identity Not on file Sexual Orientation [...] (#1) 2024 Medical Devices Implanted Type Area Sales Team Manager Device Identifier Shelf Expiration Date Model / Serial / Lot [employer] Stent Venous Wall [id number] - [id number] Implanted:Qty: 1 on 09/17/2021 by Martin Green MD at [facility] [employer] 08/11/2022 [id number] / / [id number] Procedures Procedure Name Priority Date/Time Associated Diagnosis [...] by: Rosa Marcus M.D. Martin Green MD IM US PROCEDURES Final Result * POCT lipid panel (01/21/2025 2:45 PM CDT) Cholesterol, POC 152 <200 MG/DL HDL, POC 66 >=40 mg/dL Triglycerides, POC 147 <=149 mg/dL LDL Cholesterol POC 57 <=129 mg/dL Chol/HDL Ratio, POC 2.3 NONE Non-HDL Cholesterol, POC 86 NONE mg/dL Cholesterol Total, POC 152 30 - 199 mg/dL Capillary blood 01/21/2025 2 :45 PM CDT Martin Green MD POINT OF CARE TEST ORDERABLES Fi nal Result from Last 3 Months Insurance [id number] [facility] CHOICE PLUS Care Teams Derrick Worker Well Service Relationship Specialty Start Date End Date Guillermo Westbrook MD PCP - General Family Medicine 03/31/21
[2025-04-21 16:02] LABS: Alanine Aminotransferase 19 U/L (6-35); Aspartate Amino Transferase 32 U/L (14-36)
== END 2025-04-21 15:36 | disposition home or self-care (01) ==
PROVIDERS: PCP Family Medicine; Visit Provider Podiatrist Foot & Ankle Surgery
DX: B35.1 Tinea unguium (principal)
CPT/HCPCS: 36415; 84450; 84460